=== PATIENT | female | born 1985 | race Caucasian/White ===

== ENCOUNTER 2016-07-17 09:00 | Outpatient (CLI) | payer BC | END 2016-07-17 09:01 | disposition home or self-care (01) | DX: Z20.2 Contact with and (suspected) exposure to infections with a predominantly sexual mode of transmission (principal); Z11.3 Encounter for screening for infections with a predominantly sexual mode of transmission ==

== ENCOUNTER 2016-07-28 14:09 | Outpatient (CLI) | payer BC | END 2016-07-28 14:10 | disposition home or self-care (01) | DX: M54.5 Low back pain (principal); M40.204 Unspecified kyphosis, thoracic region ==

== ENCOUNTER 2016-11-04 10:56 | Inpatient (IN) | payer BC ==
[2016-11-04] MEDS ORDERED: SODIUM CHLORIDE 0.9% 1,000 ML IV ONE ×2 (11:17)
--- NOTE | 2016-11-04 11:33 | ED Physician Documentation ---
History of Present Illness - Stated complaint Stated Complaint: BLOOD IN STOOL - Chief complaint Chief Complaint: Abd Pain - Additonal information Additional information: hx from pt 31 female LMP 2 weeks ago but thinks she might be Pshx appy hx diverticulosis dx by colonoscopy 5 yr ago also hx c diff nausea and fatigue for a week LLQ pain since last night numerous large grossly bloody BMs today no travel no bad food no sick contacts feels faint Review of Systems Constitutional: reports: Fatigue. denies: Fever, Chills Throat: denies: Sore throat Cardiac: denies: Chest pain / pressure Respiratory: denies: Dyspnea GI: reports: Abdominal Pain, Nausea, Diarrhea, Bloody / black stool : denies: Now EGA (do not know) Neurologic: reports: Generalized weakness Endocrine: denies: Easy bruising / bleeding Immunocompromised: denies: Immunocompromised PD PAST MEDICAL HISTORY - Past Medical History Cardiovascular: None Respiratory: None Neuro: None Endocrine/Autoimmune: None GI: Other : Kidney stones Musculoskeletal: Fibromyalgia, Chronic back pain - Past Surgical History Past Surgical History: Yes General: Appendectomy HEENT: Tonsil/Adenoidectomy - Present Medications Home Medications: Ambulatory Orders Medication Instructions Recorded Confirmed Control 11/07/12 04/17/15 diazePAM [Valium] 5 - 10 mg PO TID PRN 05/10/16 11/04/16 oxyCODONE/ACET 5/325 [Percocet 5 2 each PO Q4-6H 05/10/16 11/04/16 mg/325 mg] traMADol [Ultram] 50 mg PO Q4-6H 05/10/16 11/04/16 Zolpidem [Ambien] 1 tab PO DAILY 11/04/16 11/04/16 tiZANidine [Zanaflex] 1 tab PO TID 11/04/16 11/04/16 - Allergies Allergies/Adverse Reactions: Allergies Allergy/AdvReac Type Severity Reaction Status Date / Time sulfamethoxazole Allergy Edema Verified 11/04/16 11:04 [From Bactrim] trimethoprim [From Bactrim] Allergy Edema Verified 11/04/16 11:04 - Social History Does the pt smoke?: No Smoking Status: Never smoker Does the pt drink ETOH?: No Does the pt have substance abuse?: No - Immunizations Immunizations are current?: Yes - POLST Patient has POLST: No PD ED PE NORMAL - Vitals Vital signs reviewed: Yes (tachy) - General General: Alert and oriented X 3, Other (pale anxious) - Cardiac Cardiac: RRR - Respiratory Respiratory: No respiratory distress, Clear bilaterally - Abdomen Abdomen: Soft, Other (TTP LLQ no guarding) - Rectal Rectal: Other (grossly bloody stool in hat) - Derm Derm: Other (pale) - Neuro Neuro: Alert and oriented X 3 Results - Vitals Vitals: Vital Signs - 24 hr 11/04/16 11/04/16 11/04/16 11:01 13:21 14:04 Temperature 36.6 C Heart Rate 125 H 106 H 102 H Respiratory 18 20 18 Rate Blood Pressure 131/84 H 150/76 H 134/62 H O2 Saturation 99 99 100 Oxygen O2 Source Room air - Labs Labs: Laboratory Tests 11/04/16 11/04/16 11/04/16 11:26 11:26 11:26 WBC 10.8 RBC 4.37 Hgb 12.9 Hct 36.7 L MCV 83.9 MCH 29.5 MCHC 35.1 RDW 12.1 Plt Count 231 MPV 7.6 L Neut # 8.0 H Lymph # 2.1 Carbon # 0.5 Eos # 0.3 Baso # 0.1 Absolute Nucleated RBC 0.00 Nucleated RBCs 0.0 ESR PT 10.6 INR 0.9 APTT 28.4 Sodium 138 Potassium 3.7 Chloride 103 Carbon Dioxide 26 Anion Gap 9.0 BUN 11 Creatinine 0.7 Estimated GFR (MDRD) 97 Glucose 105 H Calcium 9.8 Magnesium Total Bilirubin 0.6 AST 18 ALT 20 Alkaline Phosphatase 38 L C-Reactive Protein Total Protein 7.3 Albumin 4.4 Globulin 2.9 Albumin/Globulin Ratio 1.5 Lipase 33 Serum HCG, Qual H. pylori IgG Antibody Blood Type Antibody Screen 11/04/16 11/04/16 11/04/16 11:26 11:26 11:26 WBC RBC Hgb Hct MCV MCH MCHC RDW Plt Count MPV Neut # Lymph # Carbon # Eos # Baso # Absolute Nucleated RBC Nucleated RBCs ESR 15 PT INR APTT Sodium Potassium Chloride Carbon Dioxide Anion Gap BUN Creatinine Estimated GFR (MDRD) Glucose Calcium Magnesium 2.1 Total Bilirubin AST ALT Alkaline Phosphatase C-Reactive Protein 1.6 H Total Protein Albumin Globulin Albumin/Globulin Ratio Lipase Serum HCG, Qual NEGATIVE H. pylori IgG Antibody Blood Type Antibody Screen 11/04/16 11/04/16 11/04/16 11:26 11:56 15:17 WBC RBC Hgb 12.1 Hct MCV MCH MCHC RDW Plt Count MPV Neut # Lymph # Carbon # Eos # Baso # Absolute Nucleated RBC Nucleated RBCs ESR PT INR APTT Sodium Potassium Chloride Carbon Dioxide Anion Gap BUN Creatinine Estimated GFR (MDRD) Glucose Calcium Magnesium Total Bilirubin AST ALT Alkaline Phosphatase C-Reactive Protein Total Protein Albumin Globulin Albumin/Globulin Ratio Lipase Serum HCG, Qual H. pylori IgG Antibody Negative Blood Type AB POSITIVE Antibody Screen NEGATIVE - Rads (name of study) CT abd pelvis Radiology: See rad report (long section descending to sigmoid colon wall thickening c/w colitis could be infectious inflammatory or ischemic among other ddx) PD MEDICAL DECISION MAKING - ED course ED course: GAI bleed colitis hospitalist to bedside and feels more like inflammatory and req no antibiotics yet will admit Departure - Departure Disposition: 01 Home, Self Care Clinical Impression: Colitis GI bleed Qualifiers: GI bleed type/associated pathology: unspecified gastrointestinal hemorrhage type Qualified Code(s): K92.2 - Gastrointestinal hemorrhage, unspecified Condition: Fair
[2016-11-04] MEDS ORDERED: ONDANSETRON 4 MG/2 ML VIAL ONE ×2 (11:34→13:57)
[2016-11-04] MEDS ORDERED: ONDANSETRON 4 MG/2 ML VIAL IVP STA ×2 (11:34→13:56)
[2016-11-04] MEDS ORDERED: HYDROmorphone 1 MG/ML SYRINGE IVP STA ×4 (11:34→15:38)
[2016-11-04] MEDS ORDERED: HYDROmorphone 1 MG/ML SYRINGE ONE ×4 (11:34→16:09)
[2016-11-04 11:37] LABS: BASOPHILS # (AUTO) 0.1 10^3/uL (0.0-0.1); BASOPHILS % (AUTO) 0.6 %; EOSINOPHILS # (AUTO) 0.3 10^3/uL (0.0-0.7); EOSINOPHILS % (AUTO) 2.5 %; HCT - HEMATOCRIT 36.7 % (37.0-47.0); HGB - HEMOGLOBIN 12.9 g/dL (12.0-16.0); LYMPHOCYTES # (AUTO) 2.1 10^3/uL (1.5-3.5); MEAN CORPUSCULAR HEMOGLOBIN 29.5 pg (27.0-31.0); MEAN CORPUSCULAR HGB CONC 35.1 g/dL (32.0-36.0); MEAN CORPUSCULAR VOLUME 83.9 fL (81.0-99.0); MEAN PLATELET VOLUME 7.6 fL (7.9-10.8); MONOCYTES # (AUTO) 0.5 10^3/uL (0.0-1.0); MONOCYTES % (AUTO) 4.2 %; NEUTROPHILS % (AUTO) 73.7 %; RED BLOOD COUNT 4.37 10^6/uL (4.20-5.40); RED CELL DISTRIBUTION WIDTH 12.1 % (12.0-15.0); UNCORRECTED WHITE BLOOD COUNT 10.8 x10^3/uL; WHITE BLOOD COUNT 10.8 x10^3/uL (4.8-10.8)
[2016-11-04 11:45] LABS: INR 0.9 (0.8-1.2); PT - PROTHROMBIN TIME 10.6 secs (9.9-12.6)
[2016-11-04 11:52] LABS: PARTIAL THROMBOPLASTIN TIME 28.4 secs (24.9-33.3)
[2016-11-04 11:57] LABS: ALBUMIN/GLOBULIN RATIO 1.5 (1.0-2.2); BILIRUBIN,TOTAL 0.6 mg/dL (0.2-1.0); CALCIUM 9.8 mg/dL (8.5-10.3); CREATININE 0.7 mg/dL (0.4-1.0); POTASSIUM 3.7 mmol/L (3.5-5.0); TOTAL PROTEIN 7.3 g/dL (6.7-8.2)
[2016-11-04] MEDS ORDERED: PROMETHAZINE 25 MG/1 ML VIAL IM PRN (14:05)
[2016-11-04] MEDS ORDERED: SODIUM CHLORIDE FLUSH 0.9% 10 ML SYRINGE IVP PRN (14:05)
[2016-11-04 14:50] LABS: MAGNESIUM 2.1 mg/dL (1.7-2.8)
[2016-11-04] MEDS ORDERED: IOPAMIDOL-300 100 ML VIAL IVP ONE (14:56)
[2016-11-04 14:58] LABS: H. PYLORI IGG ANTIBODY Negative (Negative); HPYLORI NEG QC Negative (Negative); HPYLORI POS QC POSITIVE (Positive)
[2016-11-04] MEDS ORDERED: traMADol 50 MG TABLET PO SCH (15:00)
--- NOTE | 2016-11-04 15:26 | CT Report ---
EXAM: CT ABDOMEN AND PELVIS EXAM DATE: 11/04/2016 02:57 PM. CLINICAL HISTORY: Left lower quadrant pain, gastrointestinal bleed. COMPARISONS: Abdomen and pelvis CT 05/11/2016. TECHNIQUE: Routine helical CT imaging was performed through the abdomen and pelvis. IV contrast: 100 cc Isovue-300. Enteric contrast: No. Reconstructions: Coronal and sagittal. In accordance with CT protocol optimization, one or more of the following dose reduction techniques w ere utilized for this exam: automated exposure control, adjustment of mA and/or KV based on patient s ize, or use of iterative reconstructive technique. FINDINGS: Lung Bases: Unremarkable. Liver: Normal. No masses. Gallbladder/Bile Ducts: Unremarkable. Spleen: Normal. Pancreas: Normal. Adrenal Glands: Normal. Kidneys: Symmetric renal enhancement without hydronephrosis. Linear calcification redemonstrated with in the right renal parenchyma with adjacent cystic density. Bowel: The stomach is unremarkable. Small bowel is decompressed. Suture material is present at the ce jose angel tip suggesting prior appendectomy. Mild colonic diverticular disease. There is long segment wall thickening of the colon involving the descending colon extending to the sigmoid although this does no t appear centered around a particular diverticulum. Slight adjacent fat stranding. No pneumoperitoneu m or abscess. Trace free fluid within the deep pelvis. Pelvic Organs: Bladder is unremarkable. Mild lobulation of the uterus consistent with leiomyomata. Vasculature: No aneurysms or other significant abnormality. Bones: No significant abnormality. Other: None. IMPRESSION: 1. Long segment wall thickening involving the descending colon extending into the sigmoid. Appearance is consistent with a colitis. Differential diagnosis includes infectious colitis, inflammatory bowel disease or ischemic colitis. No abscess or pneumoperitoneum. 2. Underlying colonic diverticular disease. 3. Leiomyomatous uterus. [facility] Referring Provider Line: [phone] SITE ID: [id number]
[2016-11-04] MEDS ORDERED: PANTOPRAZOLE 40 MG VIAL IVP SCH (16:00)
[2016-11-04] MEDS ORDERED: diphenhydrAMINE INJ 50 MG/ML VIAL IVP ONE ×2 (16:07→17:00)
[2016-11-04] MEDS ORDERED: CYANOCOBALAMIN 1,000 MCG/ML VIAL IM ONE (17:00)
[2016-11-04] MEDS ORDERED: methylPREDNISolone SUCCINATE 125 MG/2 ML VIAL IVP SCH (17:00)
[2016-11-04] MEDS: SACCHAROMYCES BOULARDII 250 MG CAPSULE PO SCH (17:12)
[2016-11-04] MEDS: SODIUM CHLORIDE 0.9% 1,000 ML IV SCH (17:12)
[2016-11-04] MEDS: CHOLECALCIFEROL 5,000 UNIT CAPSULE PO SCH ×2 (17:13→22:25)
[2016-11-04] MEDS: oxyCODONE 5 MG TABLET PO PRN ×2 (17:13→21:23)
[2016-11-04] MEDS: PANTOPRAZOLE 40 MG VIAL IVP SCH (17:13)
[2016-11-04] MEDS: tiZANidine 4 MG TABLET PO PRN (17:13)
[2016-11-04 17:30] LABS: IRON 14 ug/dL (28-170); TOTAL IRON BINDING CAPACITY 363 ug/dL (250-450); TRANSFERRIN 259 mg/dL (192-382)
[2016-11-04] MEDS: GABAPENTIN 300 MG CAPSULE PO SCH ×2 (17:41→22:25)
[2016-11-04] MEDS ORDERED: NICOTINE 21 MG PATCH TOP ONE (17:50)
[2016-11-04] MEDS ORDERED: ALPRAZolam 0.25 MG TABLET PO ONE (17:55)
[2016-11-04 18:28] LABS: THYROID STIMULATING HORMONE 0.6 uIU/mL (0.34-5.60)
[2016-11-04] MEDS ORDERED: IRON SUCROSE 300 MG in SODIUM CHLORIDE 0.9% 250 ML IV ONE (18:58)
[2016-11-04] MEDS: traMADol 50 MG TABLET PO PRN ×2 (19:36→23:45)
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
[2016-11-04 20:32] LABS: BASOPHILS % (AUTO) 0.4 %; EOSINOPHILS % (AUTO) 0.3 %; HCT - HEMATOCRIT 32.9 % (37.0-47.0); HGB - HEMOGLOBIN 11.1 g/dL (12.0-16.0); LYMPHOCYTES % (AUTO) 7.6 %; MEAN CORPUSCULAR HEMOGLOBIN 28.5 pg (27.0-31.0); MEAN CORPUSCULAR HGB CONC 33.7 g/dL (32.0-36.0); MEAN CORPUSCULAR VOLUME 84.8 fL (81.0-99.0); MEAN PLATELET VOLUME 8.5 fL (7.9-10.8); NEUTROPHILS % (AUTO) 90.7 %; RED BLOOD COUNT 3.89 10^6/uL (4.20-5.40); RED CELL DISTRIBUTION WIDTH 12.2 % (12.0-15.0); UNCORRECTED WHITE BLOOD COUNT 11.7 x10^3/uL; WHITE BLOOD COUNT 11.7 x10^3/uL (4.8-10.8)
[2016-11-04] MEDS ORDERED: IRON DEXTRAN 1,000 MG in SODIUM CHLORIDE 0.9% 500 ML IV ONE (20:39)
[2016-11-04] MEDS ORDERED: GABAPENTIN 300 MG CAPSULE PO SCH (21:00)
[2016-11-04] MEDS ORDERED: IRON DEXTRAN 25 MG in SODIUM CHLORIDE 0.9% 50 ML IV SCH (21:30)
[2016-11-04 21:31] LABS: BAND NEUTROPHILS % (MANUAL) 2 %; BASOPHILS % (MANUAL) 1 %; EOSINOPHILS % (MANUAL) 1 %; LYMPHOCYTES % (MANUAL) 5 %; NEUTROPHILS % (MANUAL) 88 %; TOTAL CELLS COUNTED 100
[2016-11-04 21:32] LABS: PLATELET ESTIMATE, MANUAL NORMAL (130-450,000) (NORMAL); PLATELET MORPHOLOGY RARE GIANT PLATELETS (NORMAL)
[2016-11-04 21:33] LABS: NP AUTO DIFFERENTIAL? YES; NP MAN DIFFERENTIAL? NO
[2016-11-04] MEDS: ALPRAZolam 0.25 MG TABLET PO SCH (22:25)
[2016-11-04] MEDS: SODIUM CHLORIDE FLUSH 0.9% 10 ML SYRINGE IVP SCH (22:25)
[2016-11-05] MEDS ORDERED: ZOLPIDEM 5 MG TABLET PO PRN ×2 (00:29→21:00)
[2016-11-05] MEDS: oxyCODONE 5 MG TABLET PO PRN ×4 (02:34→16:37)
[2016-11-05] MEDS: SODIUM CHLORIDE 0.9% 1,000 ML IV SCH ×3 (02:40→21:41)
[2016-11-05] MEDS: traMADol 50 MG TABLET PO PRN ×3 (05:35→21:35)
[2016-11-05] MEDS: GABAPENTIN 300 MG CAPSULE PO SCH ×3 (05:35→21:41)
[2016-11-05] MEDS: tiZANidine 4 MG TABLET PO PRN ×2 (05:35→16:01)
[2016-11-05] MEDS: SODIUM CHLORIDE FLUSH 0.9% 10 ML SYRINGE IVP SCH ×3 (05:37→21:36)
[2016-11-05 05:49] LABS: BASOPHILS # (AUTO) 0.1 10^3/uL (0.0-0.1); BASOPHILS % (AUTO) 0.7 %; EOSINOPHILS % (AUTO) 0.1 %; HCT - HEMATOCRIT 33.4 % (37.0-47.0); HGB - HEMOGLOBIN 11.5 g/dL (12.0-16.0); LYMPHOCYTES # (AUTO) 1.1 10^3/uL (1.5-3.5); MEAN CORPUSCULAR HEMOGLOBIN 29.3 pg (27.0-31.0); MEAN CORPUSCULAR HGB CONC 34.4 g/dL (32.0-36.0); MEAN CORPUSCULAR VOLUME 85.1 fL (81.0-99.0); MEAN PLATELET VOLUME 8.2 fL (7.9-10.8); MONOCYTES # (AUTO) 0.1 10^3/uL (0.0-1.0); MONOCYTES % (AUTO) 1.2 %; NEUTROPHILS # (AUTO) 7.4 10^3/uL (1.5-6.6); RED BLOOD COUNT 3.92 10^6/uL (4.20-5.40); RED CELL DISTRIBUTION WIDTH 12.4 % (12.0-15.0); UNCORRECTED WHITE BLOOD COUNT 8.7 x10^3/uL; WHITE BLOOD COUNT 8.7 x10^3/uL (4.8-10.8)
[2016-11-05] MEDS: ONDANSETRON ODT 4 MG TABLET TL PRN ×2 (05:55→21:41)
[2016-11-05] MEDS: PANTOPRAZOLE 40 MG VIAL IVP SCH (06:01)
[2016-11-05 06:05] LABS: CHOL/HDL RATIO 4.5 (<4.4); CHOLESTEROL 254 mg/dL; HDL CHOLESTEROL 56 mg/dL; LDL/HDL RATIO 2.9 (<4.4); TRIGLYCERIDES 181 mg/dL; VLDL CHOLESTEROL 36 mg/dL
[2016-11-05] MEDS ORDERED: IRON SUCROSE 300 MG in SODIUM CHLORIDE 0.9% 250 ML IV ONE (08:00)
[2016-11-05] MEDS ORDERED: predniSONE 10 MG TABLET PO SCH (08:00)
--- NOTE | 2016-11-05 08:37 | Discharge Plan ---
Discharge Plan Disposition: Home, Self Care Condition: Stable Prescriptions: Dicyclomine [Bentyl] 10 mg PO QID PRN #30 capsule PRN Reason: Abdominal Pain Ciprofloxacin [Cipro] 500 mg PO BID #18 tablet metroNIDAZOLE [Flagyl] 500 mg PO Q8H #27 tablet Prednisone 40 mg PO DAILY #60 tab.[id number].pk Diet: Regular Shower Restrictions: No Driving Restrictions: No Weight Bearing: Full Weight Additional Instructions or Follow Up instructions: You came to the hospital with bloody stool at home (red blood per rectum) Your red blood count (hemoglobin and hematocrit) remained stable, your clotting time and platelet count was normal You were hemodynamically stable (no blood pressure issues) and did not require a red blood cell transfusion Markers of inflammation ESR (erythrocyte sedimentation rate ) CRP (C-reactive protein) was mildly elevated C-Dif sample ordered and stool pathogens ordered, but you had no further stool while here to send for culture (so it is unlikely Cdif, as that normally would cause frequent loose stool, fever, elevated white count) A CT of the abdomen and pelvis showed 1) mild colonic diverticulosis. >>There was some thickening of the colon involving the descending colon (left side) extending to the sigmoid (not associated with a diverticula) with some mild "fat stranding" (inflammation) most consistent with a colitis/ could be diverticulits but not clear. (inflammation of the colon can be infectious, inflammatory (like crohns or ulcerative colitis or "ischemic coliitis (ischemic colitis would be unlikely at age 31) [address]; leiomyomatous uterus. You were started on prednisone (antiinflammatory) and ciprofloxacin/flagyl (9 more days). You will need a colonoscopy, tissue biopsy (once the inflammation is reduced. Take 40 mg x 2 more days, then reduce to 30 mg / day . (if no worse pain, and no recurrent bleeding, PcP will give further taper instructions. Take an over the counter probiotic (like florastor) 2x / day while on the antibiotics to avoid overgrowth When you follow up with Dr. Dumont Wednesday, get a referral for consultation for colonoscopy with Dr. Chris Esposito OR with a sales and merchandising representative for colonoscopy and further management once tissue biopsy results If your are tolerating regular food, he may start tapering the steroid further If you have worsening diarrhea, or fever contact your PCP You also have a prescription for dicyclomine (bentyl) a smooth muscle (gut) antispasmodic Dont smoke . Tobacco/smoking can aggravate colitis No Smoking: If you smoke, Please STOP! Call for help. Follow-up with: Casey Dumont DO [Primary Care Provider] -
[2016-11-05] MEDS: CHOLECALCIFEROL 5,000 UNIT CAPSULE PO SCH ×2 (08:38→21:35)
[2016-11-05] MEDS: MULTIVITAMIN W/MINERALS TABLET PO SCH (08:38)
[2016-11-05] MEDS: SACCHAROMYCES BOULARDII 250 MG CAPSULE PO SCH ×2 (08:38→16:37)
[2016-11-05] MEDS: ALPRAZolam 0.25 MG TABLET PO SCH ×2 (08:39→21:35)
[2016-11-05] MEDS ORDERED: NICOTINE 21 MG PATCH TOP SCH (09:00)
[2016-11-05] MEDS ORDERED: predniSONE 20 MG TABLET PO SCH (10:00)
[2016-11-05] MEDS: DICYCLOMINE 10 MG CAPSULE PO SCH ×3 (12:02→21:35)
--- NOTE | 2016-11-05 12:16 | PROVIDER PROGRESS NOTE ---
Subjective - Prog Note Date Prog Note Date: 11/05/16 Prog Note Time: 12:00 (late entry,seen ~ 730am and ~1130) - Subjective Pt reports feeling: No change (has not had any BM's overnight Denies ever having loose stools or diarrhea after any particular oral intake, no problems with dairy or wheat products after eating / no food intolerance many years ago when had hematemeiss,and hematochezia was told it was diverticulitis denies recent UTI no family hx of IBD, no weight loss , has actually been gaining weight denies heavy menses reports as "light" no hand arthritis expresses frustrateion about the different dietary advisements (no gluten or dairy 11/05, per surgeon advance to regular and hospitalist rec to advance from clears to fulls first Is concerned that her nicoderm patch is wearing off b/c it has been 24 hrs and inquireing doesnt the next need to be placed. Inquired about leaving hospital tonight, just wants to go home and eat regular food) Current Medications - Current Medications Current Medications: Active Medications Generic Name Dose Route Start Last Admin Trade Name Ernesto PRN Reason Stop Dose Admin Alprazolam 0.5 mg 11/04/16 23:00 11/05/16 08:39 Xanax PO 0.5 mg BID MARISOL Administration Cholecalciferol 5,000 unit 11/04/16 17:00 11/05/16 08:38 Vitamin D3 PO 5,000 unit BID MARISOL Administration Ciprofloxacin 500 mg 11/05/16 14:00 11/05/16 14:20 Cipro PO 11/15/16 13:59 500 mg BID MARISOL Administration Dicyclomine HCl 10 mg 11/05/16 13:00 11/05/16 12:02 Bentyl PO 10 mg QID MARISOL Administration Gabapentin 300 mg 11/04/16 18:00 11/05/16 13:17 Neurontin PO 300 mg TID MARISOL Administration Sodium Chloride 1,000 mls @ 100 mls/hr 11/04/16 15:00 11/05/16 12:13 Normal Saline 0.9% IV 100 mls/hr .Q10H MARISOL Administration Metronidazole 500 mg 11/05/16 13:00 11/05/16 13:17 Flagyl PO 11/15/16 12:59 500 mg Q8H MARISOL Administration Multivitamins/Minerals 1 tab 11/05/16 08:00 11/05/16 08:38 Theragran M PO 1 tab DAILYWM MARISOL Administration Ondansetron HCl 4 mg 11/04/16 14:05 11/05/16 05:55 Zofran Odt TL 4 mg Q6HR PRN Administration Nausea / Vomiting Oxycodone HCl 5 mg 11/04/16 14:05 11/05/16 07:42 Roxicodone PO 5 mg Q4HR PRN Administration Pain 5 to 7 Oxycodone HCl 10 mg 11/05/16 11:37 11/05/16 12:02 Roxicodone PO 10 mg Q4HR PRN Administration PAIN Promethazine HCl 25 mg 11/04/16 14:05 11/04/16 18:13 Phenergan Inj IM 25 mg Q6HR PRN Administration Nausea / Vomiting Saccharomyces Boulardii 500 mg 11/04/16 17:00 11/05/16 08:38 Florastor PO 500 mg BIDWM MARISOL Administration Sodium Chloride 10 ml 11/04/16 14:05 Normal Saline Flush 0.9% IVP PRN PRN NEEDED PER PROVIDER ORDERS Sodium Chloride 10 ml 11/04/16 22:00 11/05/16 13:17 Normal Saline Flush 0.9% IVP Not Given Q8HR MARISOL Tizanidine HCl 4 mg 11/04/16 15:00 11/05/16 05:35 Zanaflex PO 4 mg TID PRN Administration SPASMS Tramadol HCl 100 mg 11/04/16 16:10 11/05/16 11:03 Ultram PO 100 mg Q4HR PRN Administration PAIN Zolpidem Tartrate 5 mg 11/05/16 00:29 11/05/16 00:44 Ambien PO 5 mg QPM PRN Administration Insomnia diazePAM [Valium] 5 mg PO TID PRN 05/10/16 oxyCODONE/ACET 5/325 [Percocet 5 mg/325 mg] 1 - 2 tab PO Q6H PRN 05/10/16 traMADol [Ultram] 50 - 100 mg PO QID PRN 05/10/16 Zolpidem [Ambien] 10 mg PO QPM 11/04/16 tiZANidine [Zanaflex] 4 mg PO TID PRN 11/04/16 Norethindrone-Ethinyl Estrad [Dasetta 1-35-28 Tablet] 1 tab PO DAILY 11/05/16 Ondansetron [Ondansetron Odt] 4 mg PO TID PRN 11/05/16 traZODone [Desyrel] 50 mg PO QPM 11/05/16 Objective - Vital Signs/Intake & Output Reviewed Vital Signs: Yes Vital Signs: Vital Signs x48h Temp Pulse Resp BP Pulse Ox 11/05/16 08:00 36.7 C 61 16 112/70 100 11/05/16 05:34 73 115/70 Intake & Output: Intake & Output 11/02/16 11/03/16 11/04/16 11/05/16 23:59 23:59 23:59 23:59 Intake Total 1063 1160 Balance 1063 1160 - Objective General Appearance: positive: No acute distress (lying in bed quietly, in later in shift wearing heat pad over her abdomen) Eyes Bilateral: positive: PERRL Respiratory: positive: No respiratory distress, Breath sounds nml Cardiovascular: positive: Regular rate & rhythm, No murmur Abdomen: positive: Other (+ bowel sounds, no guarding, very localized tenderness Left lower quadrant (only mild voluntary guarding when deeply palpating there, no mass appreciated no suprapubic tendernss, Hungry ,) Skin: positive: Warm, Dry Extremities: positive: No pedal edema - Lab Results Fish Bones: 11/06/16 05:50 11/04/16 11:26 Other Labs: Lab Results x24hrs 11/05/16 11/05/16 11/05/16 Range/Units 05:40 05:40 05:40 WBC 8.7 (4.8-10.8) x10^3/uL RBC 3.92 L (4.20-5.40) 10^6/uL Hgb 11.5 L (12.0-16.0) g/dL Hct 33.4 L (37.0-47.0) % MCV 85.1 (81.0-99.0) fL MCH 29.3 (27.0-31.0) pg MCHC 34.4 (32.0-36.0) g/dL RDW 12.4 (12.0-15.0) % Plt Count 241 (130-450) 10^3/uL MPV 8.2 (7.9-10.8) fL Neut # 7.4 H Lymph # 1.1 L Wolfe # 0.1 Eos # 0.0 Baso # 0.1 Absolute Nucleated RBC 0.00 Total Counted Band Neuts % (Manual) (0 - 10) % Reactive Lymphs % (Man) % Neutrophils # (Manual) (1.5-6.6) 10^3/uL Lymphocytes # (Manual) (1.5-3.5) 10^3/uL Eosinophils # (Manual) (0-0.7) 10^3/uL Basophils # (Manual) (0-0.1) 10^3/uL Nucleated RBCs 0.0 Differential Comment Platelet Estimate (NORMAL) Platelet Morphology (NORMAL) RBC Morph Micro Appear (NORMAL) Fibrinogen (220-496) mg/dL Iron (28-170) ug/dL TIBC (250-450) ug/dL % Saturation (20-50) % Transferrin (192-382) mg/dL Ferritin (11.0-306.8) ng/mL C-Reactive Protein 10.0 H (0-1.0) mg/dL Triglycerides 181 H ( - 149) mg/dL Cholesterol 254 H ( - 199) mg/dL LDL Cholesterol, Calc 162 H ( - 129) mg/dL VLDL Cholesterol 36 mg/dL HDL Cholesterol 56 L (60 - ) mg/dL LDL/HDL Ratio 2.9 (<4.4) Cholesterol/HDL Ratio 4.5 (<4.4) Vitamin B12 (180-914) pg/mL TSH (0.34-5.60) uIU/mL Thyroxine (T4) (6.09-12.23) ug/dL Free T3 pg/mL (2.5-3.9) pg/mL 11/04/16 11/04/16 11/04/16 Range/Units 20:10 20:10 16:53 WBC 11.7 H (4.8-10.8) x10^3/uL RBC 3.89 L (4.20-5.40) 10^6/uL Hgb 11.1 L (12.0-16.0) g/dL Hct 32.9 L (37.0-47.0) % MCV 84.8 (81.0-99.0) fL MCH 28.5 (27.0-31.0) pg MCHC 33.7 (32.0-36.0) g/dL RDW 12.2 (12.0-15.0) % Plt Count 228 (130-450) 10^3/uL MPV 8.5 (7.9-10.8) fL Neut # Not Reportable Lymph # Not Reportable Wolfe # Not Reportable Eos # Not Reportable Baso # Not Reportable Absolute Nucleated RBC Not Reportable Total Counted 100 Band Neuts % (Manual) 2 (0 - 10) % Reactive Lymphs % (Man) 3 % Neutrophils # (Manual) 10.5 H (1.5-6.6) 10^3/uL Lymphocytes # (Manual) 0.9 L (1.5-3.5) 10^3/uL Eosinophils # (Manual) 0.1 (0-0.7) 10^3/uL Basophils # (Manual) 0.1 (0-0.1) 10^3/uL Nucleated RBCs Not Reportable Differential Comment MANUAL DIFFERENTIAL Platelet Estimate NORMAL (130-450,000) (NORMAL) Platelet Morphology RARE GIANT PLATELETS (NORMAL) RBC Morph Micro Appear NORMAL APPEARANCE (NORMAL) Fibrinogen 422 (220-496) mg/dL Iron (28-170) ug/dL TIBC (250-450) ug/dL % Saturation (20-50) % Transferrin (192-382) mg/dL Ferritin 104.5 (11.0-306.8) ng/mL C-Reactive Protein (0-1.0) mg/dL Triglycerides ( - 149) mg/dL Cholesterol ( - 199) mg/dL LDL Cholesterol, Calc ( - 129) mg/dL VLDL Cholesterol mg/dL HDL Cholesterol (60 - ) mg/dL LDL/HDL Ratio (<4.4) Cholesterol/HDL Ratio (<4.4) Vitamin B12 (180-914) pg/mL TSH (0.34-5.60) uIU/mL Thyroxine (T4) (6.09-12.23) ug/dL Free T3 pg/mL (2.5-3.9) pg/mL 11/04/16 11/04/16 11/04/16 Range/Units 16:53 16:53 16:53 WBC (4.8-10.8) x10^3/uL RBC (4.20-5.40) 10^6/uL Hgb (12.0-16.0) g/dL Hct (37.0-47.0) % MCV (81.0-99.0) fL MCH (27.0-31.0) pg MCHC (32.0-36.0) g/dL RDW (12.0-15.0) % Plt Count (130-450) 10^3/uL MPV (7.9-10.8) fL Neut # Lymph # Wolfe # Eos # Baso # Absolute Nucleated RBC Total Counted Band Neuts % (Manual) (0 - 10) % Reactive Lymphs % (Man) % Neutrophils # (Manual) (1.5-6.6) 10^3/uL Lymphocytes # (Manual) (1.5-3.5) 10^3/uL Eosinophils # (Manual) (0-0.7) 10^3/uL Basophils # (Manual) (0-0.1) 10^3/uL Nucleated RBCs Differential Comment Platelet Estimate (NORMAL) Platelet Morphology (NORMAL) RBC Morph Micro Appear (NORMAL) Fibrinogen (220-496) mg/dL Iron 14 L (28-170) ug/dL TIBC 363 (250-450) ug/dL % Saturation 4 L (20-50) % Transferrin 259 (192-382) mg/dL Ferritin (11.0-306.8) ng/mL C-Reactive Protein (0-1.0) mg/dL Triglycerides ( - 149) mg/dL Cholesterol ( - 199) mg/dL LDL Cholesterol, Calc ( - 129) mg/dL VLDL Cholesterol mg/dL HDL Cholesterol (60 - ) mg/dL LDL/HDL Ratio (<4.4) Cholesterol/HDL Ratio (<4.4) Vitamin B12 (180-914) pg/mL TSH (0.34-5.60) uIU/mL Thyroxine (T4) 6.93 (6.09-12.23) ug/dL Free T3 pg/mL 3.76 (2.5-3.9) pg/mL 11/04/16 Range/Units 16:53 WBC (4.8-10.8) x10^3/uL RBC (4.20-5.40) 10^6/uL Hgb (12.0-16.0) g/dL Hct (37.0-47.0) % MCV (81.0-99.0) fL MCH (27.0-31.0) pg MCHC (32.0-36.0) g/dL RDW (12.0-15.0) % Plt Count (130-450) 10^3/uL MPV (7.9-10.8) fL Neut # Lymph # Wolfe # Eos # Baso # Absolute Nucleated RBC Total Counted Band Neuts % (Manual) (0 - 10) % Reactive Lymphs % (Man) % Neutrophils # (Manual) (1.5-6.6) 10^3/uL Lymphocytes # (Manual) (1.5-3.5) 10^3/uL Eosinophils # (Manual) (0-0.7) 10^3/uL Basophils # (Manual) (0-0.1) 10^3/uL Nucleated RBCs Differential Comment Platelet Estimate (NORMAL) Platelet Morphology (NORMAL) RBC Morph Micro Appear (NORMAL) Fibrinogen (220-496) mg/dL Iron (28-170) ug/dL TIBC (250-450) ug/dL % Saturation (20-50) % Transferrin (192-382) mg/dL Ferritin (11.0-306.8) ng/mL C-Reactive Protein (0-1.0) mg/dL Triglycerides ( - 149) mg/dL Cholesterol ( - 199) mg/dL LDL Cholesterol, Calc ( - 129) mg/dL VLDL Cholesterol mg/dL HDL Cholesterol (60 - ) mg/dL LDL/HDL Ratio (<4.4) Cholesterol/HDL Ratio (<4.4) Vitamin B12 295 (180-914) pg/mL TSH 0.60 (0.34-5.60) uIU/mL Thyroxine (T4) (6.09-12.23) ug/dL Free T3 pg/mL (2.5-3.9) pg/mL Assessment/Plan - Problem List (1) Colitis Impression: Definate, although mild stranding suggestive of inflammation (descending colon) on CT no significant leukocytosis on admit, no fever, ESR normal, nominally elevated CRP /17 (but 10.0 today / up from 1.6), no anorexia Highly unlikley ischemic coliits in 31 yo H/H stable since admit, and no further hematochezia since admit. hemodynamically stable will rechek H/H in am ? infectious vs inflammatory coliits/ no family Hx of IBD, Pt denies prior presentation (in EMR to ED) for oral sores were apthous ulcers (denies); S No hx weight loss, Iron studies c/w ARRON (although ferritin spurious/ uninterpretable as acute phase reactant currently Pt denies prior hematochezia (other than when had Cdif) Re Infectious; no stool yet obtained, Hx of Cdif, ; hesitant to start cipro/ flagyl for ? infectious colitis until Cdif ruled out. If no Cdif will start cipro /flagyl (per d/w surgeon, starting cipro / flagyl Added order for fecal pathogens (no stool since admit, argues somewhat against infectious DDx includes hemorrhoids w/ her opiate use/occas constipation per patient, BUT as aobve does have colonic stranding so Highly doubt this is just hemorrhoids. Started steroids in ED, would need higher dose if IBD, started 40 mg / day, (as above her CRP actually increased since admit After Dr Aguilar seesisabella try diet advance to fulls as the colonoscopy will be outpt isabella D/C IV PPI, as very low suspiciian for UGIB as source of the hematochezia Addendum; Dr Aguilar,initially suggested this was diverticulitis and to start cipro / flagyl and to d/c steroids, but in further review and discussion he indicated to continue the Prednisone ; and plan tissue Bx Re: diet advance, discussed w patient that especially with uncertainty if this is diverticulitis vs colitis, will advance diet gradually. If tolerates fulls with no increase pain or bleeding, and no worse inflammatory markers can advance tomorrow (and further advance at home, ideally with food diary, and f/u with Dr. Esposito for colonoscopy (2) GI bleed Impression: Lower GI bleed/ hematochezi (I saw patients cell phone images; bright red blood at bottum of toilet bowl) hemodynamically stable, no further BRPPR overnight ? IBD vs infectious colitis as above will recheck H/H in am unless any sign of continued bleeding and ensure no recurrent bleed w/ diet advance Qualifiers: GI bleed type/associated pathology: unspecified gastrointestinal hemorrhage type Qualified Code(s): K92.2 - Gastrointestinal hemorrhage, unspecified
--- NOTE | 2016-11-05 13:12 | PROVIDER PROGRESS NOTE ---
Assessment/Plan - Problem List (1) GI bleed Qualifiers: GI bleed type/associated pathology: unspecified gastrointestinal hemorrhage type Qualified Code(s): K92.2 - Gastrointestinal hemorrhage, unspecified Assessment/Plan: 31 yo female with history of Diverticuli, C diff, chronic pain, now with hematochezia resolved and Ct findings of inflammation in the descending/ sigmoid colon Recommend serial H&H and if stable then advance diet as tolerated IV hydration Pain control Recommend Cipro & Flagyl & steroids Given hx of C diff, would test stool for recurrence as well as stool cultures for bacteria O&P Patient will need IBD workup and colonoscopy as out patient when decreased inflammation. Will need to follow up in surgical clinic with Colorectal surgery in 2 weeks. - Current Meds Current Meds: Current Medications Generic Name Dose Route Start Last Admin Trade Name Freq PRN Reason Stop Dose Admin Alprazolam 0.5 mg 11/04/16 23:00 11/05/16 08:39 Xanax PO 0.5 mg BID MARISOL Administration Cholecalciferol 5,000 unit 11/04/16 17:00 11/05/16 08:38 Vitamin D3 PO 5,000 unit BID MARISOL Administration Dicyclomine HCl 10 mg 11/05/16 13:00 11/05/16 12:02 Bentyl PO 10 mg QID MARISOL Administration Gabapentin 300 mg 11/04/16 18:00 11/05/16 05:35 Neurontin PO 300 mg TID MARISOL Administration Sodium Chloride 1,000 mls @ 100 mls/hr 11/04/16 15:00 11/05/16 12:13 Normal Saline 0.9% IV 100 mls/hr .Q10H MARISOL Administration Multivitamins/Minerals 1 tab 11/05/16 08:00 11/05/16 08:38 Theragran M PO 1 tab DAILYWM MARISOL Administration Ondansetron HCl 4 mg 11/04/16 14:05 11/05/16 05:55 Zofran Odt TL 4 mg Q6HR PRN Administration Nausea / Vomiting Oxycodone HCl 5 mg 11/04/16 14:05 11/05/16 07:42 Roxicodone PO 5 mg Q4HR PRN Administration Pain 5 to 7 Oxycodone HCl 10 mg 11/05/16 11:37 11/05/16 12:02 Roxicodone PO 10 mg Q4HR PRN Administration PAIN Promethazine HCl 25 mg 11/04/16 14:05 11/04/16 18:13 Phenergan Inj IM 25 mg Q6HR PRN Administration Nausea / Vomiting Saccharomyces Boulardii 500 mg 11/04/16 17:00 11/05/16 08:38 Florastor PO 500 mg BIDWM MARISOL Administration Sodium Chloride 10 ml 11/04/16 22:00 11/05/16 05:37 Normal Saline Flush 0.9% IVP Not Given Q8HR MARISOL Tizanidine HCl 4 mg 11/04/16 15:00 11/05/16 05:35 Zanaflex PO 4 mg TID PRN Administration SPASMS Tramadol HCl 100 mg 11/04/16 16:10 11/05/16 11:03 Ultram PO 100 mg Q4HR PRN Administration PAIN Zolpidem Tartrate 5 mg 11/05/16 00:29 11/05/16 00:44 Ambien PO 5 mg QPM PRN Administration Insomnia - Lab Result Lab results reviewed: Yes Fish Bone Diagrams: 11/05/16 05:40 11/04/16 11:26 - Diagnostic Imaging Results Diagnostic Imaging Results: positive: Read contemporaneously Subjective - Subjective Patient Reports: Feeling Better (CC: Abdominal pain with bright red blood from rectum. HPI: 31 yo female with hx of diverticuli,c diff, Fibromyalgia, back/ cervical pain, kidney stones. presents with 1 day episode of multiple bloody bowel movents, with some Nausea and abdominal pain 10/10 left side crampy/sharp non radiating. History of chronic back pain which is "acting up as well. No vomiting. No fevers. GI workup 5 years ago, which was "negative" for IBD. Denies family history of IBD, Not sure if GI cancers in family. Ethinicity: mixed No travel. No new foods. Called by Medical team to evaluate patient for possible further management. Patient states she is hungry and would like to eat. PD PAST MEDICAL HISTORY - Past Medical History Cardiovascular: None Respiratory: None Neuro: None Endocrine/Autoimmune: None GI: Other : Kidney stones Musculoskeletal: Fibromyalgia, Chronic back pain - Past Surgical History Past Surgical History: Yes General: Appendectomy HEENT: Tonsil/ Adenoidectomy - Present Medications Home Medications: Ambulatory Orders Medication Instructions Recorded Confirmed [id number]/ diazePAM [Valium]5 - 10 mg PO TID PRN1/ oxyCODONE/ACET 5/325 [ Percocet 52 each PO Q4-6H05/10/1605/17/17 mg/325 mg] traMADol [Ultram]50 mg PO Q4-6H05/10/1605/17/17 Zolpidem [Ambien]1 tab PO DAILY11/04/1704/17/17 tiZANidine [Zanaflex]1 tab PO TID11/04/1704/17/17 - Allergies Allergies/ Adverse Reactions: Allergies Allergy/AdvReacTypeSeverityReactionStatusDate / Time sulfamethoxazole Allergy Edema Vuokjxjp09/17/17 11:04 [From Bactrim] trimethoprim [From Bactrim] Allergy QcerwWrclwlna92/17/17 11:04 - Social History Does the pt smoke?: No Smoking Status: Never smoker Does the pt drink ETOH?: No Does the pt have substance abuse?: No - Immunizations Immunizations are current?: Yes - POLST Patient has POLST: No), Back Pain Nursing Reports: Pain Objective Vital Signs: Vital Signs - 24 hr 11/04/16 11/04/16 11/04/16 16:22 19:07 23:40 Temperature 36.6 C 36.4 C L Heart Rate 97 Heart Rate [ 72 66 Brachial] Respiratory 18 18 16 Rate Blood Pressure 143/60 H Blood Pressure 93/57 L 97/61 [Right Brachial artery] O2 Saturation 100 98 98 11/05/16 11/05/16 05:34 08:00 Temperature 36.7 C Heart Rate Heart Rate [ 73 61 Brachial] Respiratory 16 Rate Blood Pressure Blood Pressure 115/70 112/70 [Right Brachial artery] O2 Saturation 100 Oxygen O2 Source Room air I&O (Last 24 Hrs): Intake and Output Totals x24h 11/03/16 11/04/16 11/05/16 23:59 23:59 23:59 Intake Total 1063 1160 Balance 1063 1160 General: Alert, Oriented x3 HEENT: Atraumatic, PERRLA, EOMI Neck: Supple Neuro: Alert Cardiovascular: Regular rate, Normal S1, Normal S2 Respiratory: No respiratory distress, Breath sounds nml Abdomen: Soft (+Bs, soft,Mild tenderness Left sided abdomen. No rebound or guarding. infraumbilical hernia palpated reducible.) Genitourinary: Normal External Rectal: Non-Tender (Good tone. No gross blood noted. No skin tags or fissures), Stool - Heme POS Skin: No rashes (Warm and dry) - Results Results: Laboratory Results WBC 8.7 x10^3/uL (4.8-10.8) 11/05/16 05:40 RBC 3.92 10^6/uL (4.20-5.40) L 11/05/16 05:40 Hgb 11.5 g/dL (12.0-16.0) L 11/05/16 05:40 Hct 33.4 % (37.0-47.0) L 11/05/16 05:40 MCV 85.1 fL (81.0-99.0) 11/05/16 05:40 MCH 29.3 pg (27.0-31.0) 11/05/16 05:40 MCHC 34.4 g/dL (32.0-36.0) 11/05/16 05:40 RDW 12.4 % (12.0-15.0) 11/05/16 05:40 Plt Count 241 10^3/uL (130-450) 11/05/16 05:40 MPV 8.2 fL (7.9-10.8) 11/05/16 05:40 Neut # 7.4 10^3/uL (1.5-6.6) H 11/05/16 05:40 Lymph # 1.1 10^3/uL (1.5-3.5) L 11/05/16 05:40 Collin # 0.1 10^3/uL (0.0-1.0) 11/05/16 05:40 Eos # 0.0 10^3/uL (0.0-0.7) 11/05/16 05:40 Baso # 0.1 10^3/uL (0.0-0.1) 11/05/16 05:40 Absolute Nucleated RBC 0.00 x10^3/uL 11/05/16 05:40 Total Counted 100 11/04/16 20:10 Band Neuts % (Manual) 2 % (0-10) 11/04/16 20:10 Reactive Lymphs % (Man) 3 % 11/04/16 20:10 Neutrophils # (Manual) 10.5 10^3/uL (1.5-6.6) H 11/04/16 20:10 Lymphocytes # (Manual) 0.9 10^3/uL (1.5-3.5) L 11/04/16 20:10 Eosinophils # (Manual) 0.1 10^3/uL (0-0.7) 11/04/16 20:10 Basophils # (Manual) 0.1 10^3/uL (0-0.1) 11/04/16 20:10 Nucleated RBCs 0.0 /100WBC 11/05/16 05:40 Differential Comment MANUAL DIFFERENTIAL 11/04/16 20:10 Platelet Estimate NORMAL (130-450,000) (NORMAL) 11/04/16 20:10 Platelet Morphology RARE GIANT PLATELETS (NORMAL) 11/04/16 20:10 RBC Morph Micro Appear NORMAL APPEARANCE (NORMAL) 11/04/16 20:10 ESR 15 mm/Hr (0-20) 11/04/16 11:26 PT 10.6 secs (9.9-12.6) 11/04/16 11:26 INR 0.9 (0.8-1.2) 11/04/16 11:26 APTT 28.4 secs (24.9-33.3) 11/04/16 11:26 Fibrinogen 422 mg/dL (220-496) 11/04/16 20:10 Sodium 138 mmol/L (135-145) 11/04/16 11:26 Potassium 3.7 mmol/L (3.5-5.0) 11/04/16 11:26 Chloride 103 mmol/L (101-111) 11/04/16 11:26 Carbon Dioxide 26 mmol/L (21-32) 11/04/16 11:26 Anion Gap 9.0 (6-13) 11/04/16 11:26 BUN 11 mg/dL (6-20) 11/04/16 11:26 Creatinine 0.7 mg/dL (0.4-1.0) 11/04/16 11:26 Estimated GFR (MDRD) 97 (>89) 11/04/16 11:26 Glucose 105 mg/dL (70-100) H 11/04/16 11:26 Calcium 9.8 mg/dL (8.5-10.3) 11/04/16 11:26 Magnesium 2.1 mg/dL (1.7-2.8) 11/04/16 11:26 Iron 14 ug/dL (28-170) L 11/04/16 16:53 TIBC 363 ug/dL (250-450) 11/04/16 16:53 % Saturation 4 % (20-50) L 11/04/16 16:53 Transferrin 259 mg/dL (192-382) 11/04/16 16:53 Ferritin 104.5 ng/mL (11.0-306.8) 11/04/16 16:53 Total Bilirubin 0.6 mg/dL (0.2-1.0) 11/04/16 11:26 AST 18 IU/L (10-42) 11/04/16 11:26 ALT 20 IU/L (10-60) 11/04/16 11:26 Alkaline Phosphatase 38 IU/L (42-121) L 11/04/16 11:26 C-Reactive Protein 10.0 mg/dL (0-1.0) H 11/05/16 05:40 Total Protein 7.3 g/dL (6.7-8.2) 11/04/16 11:26 Albumin 4.4 g/dL (3.2-5.5) 11/04/16 11:26 Globulin 2.9 g/dL (2.1-4.2) 11/04/16 11:26 Albumin/Globulin Ratio 1.5 (1.0-2.2) 11/04/16 11:26 Triglycerides 181 mg/dL (-149) H 11/05/16 05:40 Cholesterol 254 mg/dL (-199) H 11/05/16 05:40 LDL Cholesterol, Calc 162 mg/dL (-129) H 11/05/16 05:40 VLDL Cholesterol 36 mg/dL 11/05/16 05:40 HDL Cholesterol 56 mg/dL (60-) L 11/05/16 05:40 LDL/HDL Ratio 2.9 (<4.4) 11/05/16 05:40 Cholesterol/HDL Ratio 4.5 (<4.4) 11/05/16 05:40 Lipase 33 U/L (22-51) 11/04/16 11:26 Vitamin B12 295 pg/mL (180-914) 11/04/16 16:53 TSH 0.60 uIU/mL (0.34-5.60) 11/04/16 16:53 Thyroxine (T4) 6.93 ug/dL (6.09-12.23) 11/04/16 16:53 Free T3 pg/mL 3.76 pg/mL (2.5-3.9) 11/04/16 16:53 Serum HCG, Qual NEGATIVE 11/04/16 11:26 H. pylori IgG Antibody Negative (Negative) 11/04/16 11:26 Blood Type AB POSITIVE 11/04/16 11:56 Antibody Screen NEGATIVE 11/04/16 11:56
[2016-11-05] MEDS: metroNIDAZOLE 250 MG TABLET PO SCH ×2 (13:17→21:35)
[2016-11-05] MEDS: CIPROFLOXACIN 250 MG TABLET PO SCH ×2 (14:20→21:35)
[2016-11-06] MEDS: oxyCODONE 5 MG TABLET PO PRN ×3 (00:23→09:32)
[2016-11-06] MEDS: tiZANidine 4 MG TABLET PO PRN (00:23)
[2016-11-06] MEDS: metroNIDAZOLE 250 MG TABLET PO SCH (05:26)
[2016-11-06] MEDS: GABAPENTIN 300 MG CAPSULE PO SCH (05:26)
[2016-11-06] MEDS: SODIUM CHLORIDE FLUSH 0.9% 10 ML SYRINGE IVP SCH (05:27)
[2016-11-06 06:21] LABS: BASOPHILS % (AUTO) 0.1 %; EOSINOPHILS % (AUTO) 0.3 %; HCT - HEMATOCRIT 29.2 % (37.0-47.0); HGB - HEMOGLOBIN 10.1 g/dL (12.0-16.0); LYMPHOCYTES % (AUTO) 30.8 %; MEAN CORPUSCULAR HEMOGLOBIN 29.9 pg (27.0-31.0); MEAN CORPUSCULAR HGB CONC 34.5 g/dL (32.0-36.0); MEAN CORPUSCULAR VOLUME 86.8 fL (81.0-99.0); MEAN PLATELET VOLUME 8.5 fL (7.9-10.8); MONOCYTES # (AUTO) 0.5 10^3/uL (0.0-1.0); MONOCYTES % (AUTO) 5.4 %; NEUTROPHILS # (AUTO) 6.1 10^3/uL (1.5-6.6); NEUTROPHILS % (AUTO) 63.4 %; RED BLOOD COUNT 3.37 10^6/uL (4.20-5.40); RED CELL DISTRIBUTION WIDTH 12.6 % (12.0-15.0); UNCORRECTED WHITE BLOOD COUNT 9.7 x10^3/uL; WHITE BLOOD COUNT 9.7 x10^3/uL (4.8-10.8)
[2016-11-06] MEDS: traMADol 50 MG TABLET PO PRN (06:32)
[2016-11-06] MEDS: SODIUM CHLORIDE 0.9% 1,000 ML IV SCH (06:33)
--- NOTE | 2016-11-06 07:24 | PROVIDER PROGRESS NOTE ---
Assessment/Plan - Problem List (1) GI bleed Qualifiers: GI bleed type/associated pathology: unspecified gastrointestinal hemorrhage type Qualified Code(s): K92.2 - Gastrointestinal hemorrhage, unspecified Assessment/Plan: 31 yo female with history of Diverticuli, C diff, chronic pain, now with hematochezia resolved and Ct findings of inflammation in the descending/ sigmoid colon Recommend diet advance as tolerated. Medical management as per primary medical team Patient will need IBD workup and colonoscopy as out patient when decreased inflammation. Will need to follow up in surgical clinic with Colorectal surgery ( Dr. Perez) in 2 weeks. - Current Meds Current Meds: Current Medications Generic Name Dose Route Start Last Admin Trade Name Freq PRN Reason Stop Dose Admin Alprazolam 0.5 mg 11/04/16 23:00 11/05/16 21:35 Xanax PO 0.5 mg BID MARISOL Administration Cholecalciferol 5,000 unit 11/04/16 17:00 11/05/16 21:35 Vitamin D3 PO 5,000 unit BID MARISOL Administration Ciprofloxacin 500 mg 11/05/16 14:00 11/05/16 21:35 Cipro PO 11/15/16 13:59 500 mg BID MARISOL Administration Dicyclomine HCl 10 mg 11/05/16 13:00 11/05/16 21:35 Bentyl PO 10 mg QID MARISOL Administration Gabapentin 300 mg 11/04/16 18:00 11/06/16 05:26 Neurontin PO 300 mg TID MARISOL Administration Sodium Chloride 1,000 mls @ 100 mls/hr 11/04/16 15:00 11/06/16 06:33 Normal Saline 0.9% IV 100 mls/hr .Q10H MARISOL Administration Metronidazole 500 mg 11/05/16 13:00 11/06/16 05:26 Flagyl PO 11/15/16 12:59 500 mg Q8H MARISOL Administration Multivitamins/Minerals 1 tab 11/05/16 08:00 11/05/16 08:38 Theragran M PO 1 tab DAILYWM MARISOL Administration Ondansetron HCl 4 mg 11/04/16 14:05 11/05/16 21:41 Zofran Odt TL 4 mg Q6HR PRN Administration Nausea / Vomiting Oxycodone HCl 5 mg 11/04/16 14:05 11/05/16 07:42 Roxicodone PO 5 mg Q4HR PRN Administration Pain 5 to 7 Oxycodone HCl 10 mg 11/05/16 11:37 11/06/16 05:31 Roxicodone PO 10 mg Q4HR PRN Administration PAIN Promethazine HCl 25 mg 11/04/16 14:05 11/04/16 18:13 Phenergan Inj IM 25 mg Q6HR PRN Administration Nausea / Vomiting Saccharomyces Boulardii 500 mg 11/04/16 17:00 11/05/16 16:37 Florastor PO 500 mg BIDWM MARISOL Administration Sodium Chloride 10 ml 11/04/16 14:05 11/06/16 06:33 Normal Saline Flush 0.9% IVP 10 ml PRN PRN Administration NEEDED PER PROVIDER ORDERS Sodium Chloride 10 ml 11/04/16 22:00 11/06/16 05:27 Normal Saline Flush 0.9% IVP Not Given Q8HR MARISOL Tizanidine HCl 4 mg 11/04/16 15:00 11/06/16 00:23 Zanaflex PO 4 mg TID PRN Administration SPASMS Tramadol HCl 100 mg 11/04/16 16:10 11/06/16 06:32 Ultram PO 100 mg Q4HR PRN Administration PAIN Zolpidem Tartrate 5 mg 11/05/16 00:29 11/05/16 00:44 Ambien PO 5 mg QPM PRN Administration Insomnia - Lab Result Fish Bone Diagrams: 11/06/16 05:50 11/04/16 11:26 - Additional Planning Condition/Complexity: Improved Plan Discussed with:: Patient Subjective - Subjective Patient Reports: Feeling Better Nursing Reports: No Complaints Objective Vital Signs: Vital Signs - 24 hr 11/05/16 11/05/16 11/06/16 08:00 16:10 00:30 Temperature 36.7 C 36.2 C L 36.6 C Heart Rate [ 61 63 50 L Brachial] Respiratory 16 18 12 Rate Blood Pressure 112/70 121/66 109/61 [Right Brachial artery] O2 Saturation 100 100 98 11/06/16 02:32 Temperature Heart Rate [ 65 Brachial] Respiratory Rate Blood Pressure [Right Brachial artery] O2 Saturation Oxygen O2 Source Room air I&O (Last 24 Hrs): Intake and Output Totals x24h 11/04/16 11/05/16 11/06/16 23:59 23:59 23:59 Intake Total 1063 4171 939 Balance 1063 4176 939 General: Alert, Oriented x3 HEENT: PERRLA, EOMI Neck: Supple Neuro: Alert Cardiovascular: Regular rate Respiratory: Breath sounds nml Abdomen: Normal bowel sounds (Patien seen at bedside this am. She denies havinfg any BM's or bloody stool. She c/o the current diet she has been on stating she wants fruit and doesnt eat high sugar food or milk products like ice cream. She stated she wants to go home. Denies any n/v/d no F/C), Soft, No tenderness - Results Results: Laboratory Results WBC 9.7 x10^3/uL (4.8-10.8) 11/06/16 05:50 RBC 3.37 10^6/uL (4.20-5.40) L 11/06/16 05:50 Hgb 10.1 g/dL (12.0-16.0) L 11/06/16 05:50 Hct 29.2 % (37.0-47.0) L 11/06/16 05:50 MCV 86.8 fL (81.0-99.0) 11/06/16 05:50 MCH 29.9 pg (27.0-31.0) 11/06/16 05:50 MCHC 34.5 g/dL (32.0-36.0) 11/06/16 05:50 RDW 12.6 % (12.0-15.0) 11/06/16 05:50 Plt Count 252 10^3/uL (130-450) 11/06/16 05:50 MPV 8.5 fL (7.9-10.8) 11/06/16 05:50 Neut # 6.1 10^3/uL (1.5-6.6) 11/06/16 05:50 Lymph # 3.0 10^3/uL (1.5-3.5) 11/06/16 05:50 Sampson # 0.5 10^3/uL (0.0-1.0) 11/06/16 05:50 Eos # 0.0 10^3/uL (0.0-0.7) 11/06/16 05:50 Baso # 0.0 10^3/uL (0.0-0.1) 11/06/16 05:50 Absolute Nucleated RBC 0.00 x10^3/uL 11/06/16 05:50 Total Counted 100 11/04/16 20:10 Band Neuts % (Manual) 2 % (0-10) 11/04/16 20:10 Reactive Lymphs % (Man) 3 % 11/04/16 20:10 Neutrophils # (Manual) 10.5 10^3/uL (1.5-6.6) H 11/04/16 20:10 Lymphocytes # (Manual) 0.9 10^3/uL (1.5-3.5) L 11/04/16 20:10 Eosinophils # (Manual) 0.1 10^3/uL (0-0.7) 11/04/16 20:10 Basophils # (Manual) 0.1 10^3/uL (0-0.1) 11/04/16 20:10 Nucleated RBCs 0.0 /100WBC 11/06/16 05:50 Differential Comment MANUAL DIFFERENTIAL 11/04/16 20:10 Platelet Estimate NORMAL (130-450,000) (NORMAL) 11/04/16 20:10 Platelet Morphology RARE GIANT PLATELETS (NORMAL) 11/04/16 20:10 RBC Morph Micro Appear NORMAL APPEARANCE (NORMAL) 11/04/16 20:10 ESR 29 mm/Hr (0-20) H 11/06/16 05:50 PT 10.6 secs (9.9-12.6) 11/04/16 11:26 INR 0.9 (0.8-1.2) 11/04/16 11:26 APTT 28.4 secs (24.9-33.3) 11/04/16 11:26 Fibrinogen 422 mg/dL (220-496) 11/04/16 20:10 Sodium 138 mmol/L (135-145) 11/04/16 11:26 Potassium 3.7 mmol/L (3.5-5.0) 11/04/16 11:26 Chloride 103 mmol/L (101-111) 11/04/16 11:26 Carbon Dioxide 26 mmol/L (21-32) 11/04/16 11:26 Anion Gap 9.0 (6-13) 11/04/16 11:26 BUN 11 mg/dL (6-20) 11/04/16 11:26 Creatinine 0.7 mg/dL (0.4-1.0) 11/04/16 11:26 Estimated GFR (MDRD) 97 (>89) 11/04/16 11:26 Glucose 105 mg/dL (70-100) H 11/04/16 11:26 Calcium 9.8 mg/dL (8.5-10.3) 11/04/16 11:26 Magnesium 2.1 mg/dL (1.7-2.8) 11/04/16 11:26 Iron 14 ug/dL (28-170) L 11/04/16 16:53 TIBC 363 ug/dL (250-450) 11/04/16 16:53 % Saturation 4 % (20-50) L 11/04/16 16:53 Transferrin 259 mg/dL (192-382) 11/04/16 16:53 Ferritin 104.5 ng/mL (11.0-306.8) 11/04/16 16:53 Total Bilirubin 0.6 mg/dL (0.2-1.0) 11/04/16 11:26 AST 18 IU/L (10-42) 11/04/16 11:26 ALT 20 IU/L (10-60) 11/04/16 11:26 Alkaline Phosphatase 38 IU/L (42-121) L 11/04/16 11:26 C-Reactive Protein 4.7 mg/dL (0-1.0) H 11/06/16 05:50 Total Protein 7.3 g/dL (6.7-8.2) 11/04/16 11:26 Albumin 4.4 g/dL (3.2-5.5) 11/04/16 11:26 Globulin 2.9 g/dL (2.1-4.2) 11/04/16 11:26 Albumin/Globulin Ratio 1.5 (1.0-2.2) 11/04/16 11:26 Triglycerides 181 mg/dL (-149) H 11/05/16 05:40 Cholesterol 254 mg/dL (-199) H 11/05/16 05:40 LDL Cholesterol, Calc 162 mg/dL (-129) H 11/05/16 05:40 VLDL Cholesterol 36 mg/dL 11/05/16 05:40 HDL Cholesterol 56 mg/dL (60-) L 11/05/16 05:40 LDL/HDL Ratio 2.9 (<4.4) 11/05/16 05:40 Cholesterol/HDL Ratio 4.5 (<4.4) 11/05/16 05:40 Lipase 33 U/L (22-51) 11/04/16 11:26 Vitamin B12 295 pg/mL (180-914) 11/04/16 16:53 TSH 0.60 uIU/mL (0.34-5.60) 11/04/16 16:53 Thyroxine (T4) 6.93 ug/dL (6.09-12.23) 11/04/16 16:53 Free T3 pg/mL 3.76 pg/mL (2.5-3.9) 11/04/16 16:53 Serum HCG, Qual NEGATIVE 11/04/16 11:26 H. pylori IgG Antibody Negative (Negative) 11/04/16 11:26 Blood Type AB POSITIVE 11/04/16 11:56 Antibody Screen NEGATIVE 11/04/16 11:56
[2016-11-06] MEDS: MULTIVITAMIN W/MINERALS TABLET PO SCH (08:43)
[2016-11-06] MEDS: CIPROFLOXACIN 250 MG TABLET PO SCH (08:43)
[2016-11-06] MEDS: CHOLECALCIFEROL 5,000 UNIT CAPSULE PO SCH (08:43)
[2016-11-06] MEDS: SACCHAROMYCES BOULARDII 250 MG CAPSULE PO SCH (08:43)
[2016-11-06] MEDS: DICYCLOMINE 10 MG CAPSULE PO SCH (08:43)
[2016-11-06] MEDS: ALPRAZolam 0.25 MG TABLET PO SCH (08:44)
[2016-11-06 09:30] VITALS: BP 104/64
[2016-11-06 18:12] LABS: ANA SCREEN POSITIVE (NEGATIVE); ANA TITER 1:40 titer (())
--- NOTE | 2016-11-06 20:03 | DISCHARGE SUMMARY ---
DATE OF ADMISSION: 11/04/2016 DATE OF DISCHARGE: 11/06/2016 PRIMARY CARE PHYSICIAN: Dr. Dumont. DISCHARGE DIAGNOSES: 1. Colitis of the descending colon. 2. Possible diverticulitis. 3. Lower gastrointestinal bleed. 4. Iron deficiency anemia. SECONDARY DIAGNOSES: Include 1. History of diverticulosis. 2. History chronic low back pain. CONSULTATIONS: Dr. Padilla of general surgery. PROCEDURES: None. DIAGNOSTIC IMAGING STUDIES: Abdominal pelvis CT 11/04/2016, findings: 1. Mild colonic diverticular disease. 2. Long segment wall thickening of the colon involving the descending colon extending to the sigmoid, does not appear centered around a particular diverticulum. This has adjacent fat stranding. No abscess or pneumoperitoneum. Appearance most consistent with colitis per the radiologist read. 3. Leiomyomatous uterus. DIAGNOSTIC LABORATORY STUDIES: CBC on admission, white count 11.7, hemoglobin 11.1, hematocrit 32.9, platelets 228,000. Discharge white count was 9.7. ESR at admission 15, on 11/06/2016 it was 29. CRP 1.6 on admission, 10.0 on 11/05/2016 and 4.7 on 11/06/2016. Chemistries on admission, sodium 138, potassium 3.7, chloride 103, bicarbonate 26, BUN 11, creatinine 0.7, glucose 105. Iron studies: Iron 14, TIBC 363, percent saturation 4, transferrin 259, ferritin 104.5 (note this was in setting of inflammation/colitis) A TSH was 0.60. H pylori antibody was negative. Stool cultures ordered/ not obtained BRIEF HOSPITAL COURSE BY PROBLEMS: 1. Colitis. This is a 31-year-old female who presented after several episodes of bright red blood per rectum at home. She had had nausea and fatigue for approximately a week prior to presentation with no vomiting or hematemesis. She also had left lower quadrant abdominal pain along with the grossly bloody bowel movements on the day of presentation. In the emergency room, she was hemodynamically stable. Her hemoglobin and hematocrit were 11.1 and 32.9 and remains stable on discharge 10.1 and 29.2 does reflect IV fluid during the course of hospitalization. She remained hemodynamically stable with no additional hematochezia while here. A CT scan of the abdomen done on admission did show thickening of the left descending colon down to the sigmoid and although she does have mild diverticulosis, the bowel wall thickening does not appear associated with any of the diverticula, and is most consistent with a colitis. She did not have a fever but had a mild leukocytosis on presentation. Initially her sedimentation rate was not elevated but did increase and her CRP was also elevated. Differential for colitis included both infectious and inflammatory colitis. It is highly unlikely that a 31-year-old had an ischemic colitis. She was empirically started on corticosteroids as well as Cipro and Flagyl and Dr. Padilla of general surgery was also consulted. There was no further stool to be sent for fecal pathogens, but she does continue on Cipro and Flagyl Regarding the possibility of this being an inflammatory bowel disease , she has had recurrent episodes of discomfort with prior imaging studies not showing any thickened bowel or stranding. She does not have any weight loss or obvious malabsorption. She does have an iron deficiency anemia, although the iron studies particularly ferritin need to be repeated when she is not acutely inflamed as the ferritin is obviously an acute phase reactant and could not be reliably measured right now. In the circumstance this could be IBD, it does at times take as long as 5 years to make a diagnosis of inflammatory bowel disease a mild presentation. She will need outpatient GI or surgery followup initially to get a colonoscopy when the inflammation has improved. This can be either done through a referral to the surgical Clinic for Dr. Esposito to do the colonoscopy or to a doubler operator. . She did tolerate a diet advanced from clears to full and did tolerate a regular diet on the morning of 11/06/2016. She is instructed to take the additional 2 days of 40 mg of prednisone and then she can reduce to 30 mg of prednisone daily. If there is no exacerbation of her discomfort, and no recurrent hematochezia, she can be directed further on a steroid taper by her primary care physician. She is to finish an additional 9 days of ciprofloxacin and Flagyl and as noted she needs a colonoscopy and tissue biopsy to determine the nature of this colitis. She also was given a prescription for dicyclomine in case she has any bowel spasms. 2. Possible diverticulitis. As noted she is on Cipro and Flagyl. The thickening of the descending colon rather than just the sigmoid argues more towards colitis as opposed to a diverticulitis, but the cipro/flagyl would treat that as well.3. Iron deficiency anemia. Although her ferritin is likely spurious in the setting of acute inflammation, her iron studies were suggestive of iron deficiency anemia. She was given a dose of IV Venofer here. This will need further outpatient evaluation and ideally retesting when she no longer has acute inflammation for more accurate evaluation of those iron studies. 4. Chronic low back pain. She continues on her home regimen for chronic low back pain. DISCHARGE MEDICATIONS: NEW PRESCRIPTIONS: 1. Prednisone 40 mg. once daily for 2 additional days, then she reduce to 30 mg once daily with further taper instructions as per primary physician. 2. Ciprofloxacin 500 mg twice daily for 9 more days. 3. Flagyl 500 mg 3 times daily for an additional 9 days. 4. Dicyclomine 10 mg 4 times daily p.r.n. abdominal spasm. She will continue her home medicines of: 1. Valium 5 mg 3 times daily p.r.n. muscle spasm. 2. Zanaflex 4 mg 3 times daily p.r.n. spasm. 3. Tramadol 50-100 mg 4 times daily if needed for back pain. 4. Zolpidem 10 mg each evening for sleep if needed. 5. Oxycodone/acetaminophen 5/325 1 to 2 tabs every 6 hours if needed for back pain. 6. Zofran 4 mg 3 times daily if needed for nausea. 7. She is to continue her home control lvlgiufjjusir-srrxxrn-wbplzoubl, also called Dasetta. 8. Trazodone 50 mg. once each evening. DISCHARGE INSTRUCTIONS: The patient is to followup with Dr. Dumont. She will need a referral either for Gastroenterology to evaluate her for colonoscopy versus with Dr. Chris Esposito for colonoscopy and biopsy and then followup with Gastroenterology. Consider reevaluate her iron studies after she is over the acute inflammation and reevaluate possible iron deficiency anemia and further taper the patient's prednisone depending on her symptomatic response on the current prednisone. PHYSICAL EXAM ON DISCHARGE; Afebrile, heart rate, blood pressure RR unremarkable GENERAL; PLEASANT young woman lying in bed with heat pad over abdomen,no acute distress, tolerateed regular diet. nontoxic appearing Chest CTA, unlabored respirations Heart Regular S1S2,no murmur, rub, Abdomen; soft, + BS, nontender LLQ today (previously localized LLQ tenderness. Mild RLQ tenderness, no guarding,no repbound Ext; skin warm , dry no edema JOB #: [id number] EXT JOB #:[id number] ADAMA
[2016-11-09 17:16] LABS: GLIADIN (DEAMIDATED) AB IGA 4 U (<20); GLIADIN (DEAMIDATED) AB IGG 3 U (<20); IMMUNOGLOBULIN A 90 mg/dL (81-463); TISSUE TRANSGLUTAMINASE IGA <1 U/mL (()); TISSUE TRANSGLUTAMINASE IGG <1 U/mL (())
== END 2016-11-06 11:15 | disposition home or self-care (01) | DRG 392 ==
LOC: ED 10:56 → MS 15:44
PROVIDERS: ADMIT Nurse Practitioner; ATTEND Nurse Practitioner
DX: K52.9 Noninfective gastroenteritis and colitis, unspecified (principal); K57.32 Diverticulitis of large intestine without perforation or abscess without bleeding; K92.2 Gastrointestinal hemorrhage, unspecified; D50.9 Iron deficiency anemia, unspecified; G89.29 Other chronic pain; M54.9 Dorsalgia, unspecified; M79.7 Fibromyalgia; M41.9 Scoliosis, unspecified; R45.1 Restlessness and agitation; E04.9 Nontoxic goiter, unspecified; K58.9 Irritable bowel syndrome, unspecified; D25.9 Leiomyoma of uterus, unspecified; F17.210 Nicotine dependence, cigarettes, uncomplicated; M47.899 Other spondylosis, site unspecified; Z84.89 Family history of other specified conditions; Z79.891 Long term (current) use of opiate analgesic; Z79.3 Long term (current) use of hormonal contraceptives; Z79.899 Other long term (current) drug therapy; Z87.442 Personal history of urinary calculi
CPT/HCPCS: 36415; 74177; 80053; 80061; 82530; 82607; 82652; 82728; 82784; 83516; 83540; 83690; 83735; 84436; 84443; 84466; 84481; 84703; 85018; 85025; 85384; 85610; 85651; 85730; 86021; 86038; 86140; 86200; 86256; 86850; 86900; 86901; 87339; 87493; 96361; 96374; 96375; 96376; 99284

== ENCOUNTER 2016-11-18 15:13 | Outpatient (CLI) | payer BC ==
[2016-11-18 15:51] LABS: BASOPHILS # (AUTO) 0.1 10^3/uL (0.0-0.1); BASOPHILS % (AUTO) 0.4 %; EOSINOPHILS % (AUTO) 0.3 %; HCT - HEMATOCRIT 42.3 % (37.0-47.0); HGB - HEMOGLOBIN 14.1 g/dL (12.0-16.0); LYMPHOCYTES # (AUTO) 3.1 10^3/uL (1.5-3.5); LYMPHOCYTES % (AUTO) 25.9 %; MEAN CORPUSCULAR HEMOGLOBIN 29.3 pg (27.0-31.0); MEAN CORPUSCULAR HGB CONC 33.4 g/dL (32.0-36.0); MEAN CORPUSCULAR VOLUME 87.7 fL (81.0-99.0); MEAN PLATELET VOLUME 8.2 fL (7.9-10.8); MONOCYTES # (AUTO) 0.5 10^3/uL (0.0-1.0); MONOCYTES % (AUTO) 4.5 %; NEUTROPHILS # (AUTO) 8.1 10^3/uL (1.5-6.6); NEUTROPHILS % (AUTO) 68.9 %; RED BLOOD COUNT 4.83 10^6/uL (4.20-5.40); RED CELL DISTRIBUTION WIDTH 12.8 % (12.0-15.0); UNCORRECTED WHITE BLOOD COUNT 11.8 x10^3/uL; WHITE BLOOD COUNT 11.8 x10^3/uL (4.8-10.8)
[2016-11-18 16:01] LABS: ALBUMIN/GLOBULIN RATIO 1.6 (1.0-2.2); BILIRUBIN,TOTAL 0.3 mg/dL (0.2-1.0); BUN - BLOOD UREA NITROGEN 13 mg/dL (6-20); CALCIUM 9.8 mg/dL (8.5-10.3); CARBON DIOXIDE - CO2 27 mmol/L (21-32); CHLORIDE 99 mmol/L (101-111); CREATININE 0.6 mg/dL (0.4-1.0); GFR - MDRD 116 (>89); GLUCOSE 87 mg/dL (70-100); IRON 126 ug/dL (28-170); POTASSIUM 4.2 mmol/L (3.5-5.0); SODIUM 137 mmol/L (135-145); TOTAL IRON BINDING CAPACITY 431 ug/dL (250-450); TOTAL PROTEIN 7.8 g/dL (6.7-8.2); TRANSFERRIN 308 mg/dL (192-382)
== END 2016-11-18 15:14 | disposition home or self-care (01) ==
LOC: LAB 15:13
PROVIDERS: ATTEND Family Medicine
DX: R73.01 Impaired fasting glucose (principal); K57.30 Diverticulosis of large intestine without perforation or abscess without bleeding
CPT/HCPCS: 36415; 80053; 82728; 83540; 84466; 85025; 85651; 86140

== ENCOUNTER 2016-12-03 13:06 | Day surgery (SDC) | payer BC ==
[2016-12-03 13:41] LABS: HCG UR QUAL NEGATIVE
[2016-12-03] MEDS ORDERED: LACTATED RINGERS 1,000 ML IV ONE (14:00)
[2016-12-03] MEDS ORDERED: MIDAZOLAM 2 MG/2 ML VIAL IVP ONE (14:58)
[2016-12-03] MEDS ORDERED: fentaNYL 100 MCG/2 ML VIAL IVP ONE (14:58)
[2016-12-03] MEDS ORDERED: PROPOFOL 200 MG/20 ML VIAL IVP ONE (14:58)
[2016-12-03 16:31] VITALS: BP 108/92
== END 2016-12-03 13:07 | disposition home or self-care (01) ==
LOC: SDS 13:06
PROVIDERS: ATTEND Surgery
PROC: 0DBN8ZX Excision of Sigmoid Colon, Via Natural or Artificial Opening Endoscopic, Diagnostic (ICD-10-PCS; 2016-12-03)
PROC: 0DBP8ZX Excision of Rectum, Via Natural or Artificial Opening Endoscopic, Diagnostic (ICD-10-PCS; principal; 2016-12-03 14:00)
DX: K63.89 Other specified diseases of intestine (principal); R10.32 Left lower quadrant pain; K92.1 Melena; F17.210 Nicotine dependence, cigarettes, uncomplicated; K57.30 Diverticulosis of large intestine without perforation or abscess without bleeding; K64.8 Other hemorrhoids; Q27.33 Arteriovenous malformation of digestive system vessel
CPT/HCPCS: 45380; 81025; J7120; 88305

== ENCOUNTER 2016-12-17 10:35 | Outpatient (CLI) | payer BC ==
--- NOTE | 2016-12-17 15:55 | Ultrasound Report ---
THYROID ULTRASOUND: 12/17/2016 CLINICAL INDICATION: Followup cystic nodule left lobe of the thyroid, followup lymph nodes. COMPARISON: Thyroid ultrasound of 02/11/2016, soft tissue neck ultrasound of 03/27/2016. TECHNIQUE: Real-time scanning was performed with customer service representative static images obtained. FINDINGS: The right lobe measures 5.4 x 1.6 x 0.8 cm, and the left lobe measures 5.1 x 2.0 x 1.3 cm. The isthmus measures 3 mm. The cystic nodule in the lower pole of the left lobe has not changed sign ificantly in size, now measuring 3.1 x 2.0 x 1.9 cm (previously 2.8 x 2.1 x 1.6 cm). No new nodule is seen. Normal sized lymph nodes are again noted. No lymphadenopathy is identified. IMPRESSION: STABLE APPEARANCE OF CYSTIC NODULE IN THE LOWER POLE OF THE LEFT LOBE OF THE THYROID. ST ABLE NORMAL SIZED LYMPH NODES. NO LYMPHADENOPATHY OR NEW SUSPICIOUS THYROID NODULE IS IDENTIFIED. JOB #: [id number] EXT JOB #:[id number]
== END 2016-12-17 10:36 | disposition home or self-care (01) ==
LOC: DI 10:35
PROVIDERS: ATTEND Family Medicine
DX: E04.1 Nontoxic single thyroid nodule (principal)
CPT/HCPCS: 76536

== ENCOUNTER 2016-12-28 14:40 | Outpatient (CLI) | payer BC ==
--- NOTE | 2016-12-28 17:45 | MRI Report ---
EXAM: MRI LUMBAR SPINE WITHOUT CONTRAST EXAM DATE: 12/28/2016 03:15 PM. CLINICAL HISTORY: LOW BACK PAIN and bilateral hip and leg pain with numbness. COMPARISON: Prior plain film lumbar spine 07/28/2016, prior MRI lumbars line 01/25/2016. TECHNIQUE: Multiplanar, multisequence T1-weighted and fluid-sensitive sequences of the lumbar spine f rom T12 to S1 without contrast. Other: None. Findings: Relevant images are indicated (image number, series number). There are 5 asx-otm-ntzbzin lumbar vertebrae present. Conus terminates at T12-L1. There is no abnorma l lumbar cord signal, there is no suspicious marrow lesion. Partly visualized bilateral sacroiliac donell ints demonstrate mild degenerative changes, , with suspected partly visualized, partial sacralization left L5 transverse process, left S1 sacral ala. Surrounding skeletal muscle is unremarkable. Chronic multilevel lower lumbar spine posterior facet de generative changes are present. There is partial visualization of suspected 2 cm right ovarian cyst, and the visualized (13, 301). Low signal intensity mass appears present within the anterior fundus of the uterus (6, 301), suggestive of a fibroid. Partly visualized T11-T12 through L4-L5: No significant canal stenosis or neural foraminal narrowing. Mild multilevel lower lumbar posterior facet degenerative changes, without marisela-facet edema. L5-S1: No significant canal stenosis or neural foraminal narrowing. Remaining upper sacral canal is unremarkable. There is trivial fluid in the cul-de-sac. Impressions: 1. No abnormal lumbar cord signal or suspicious marrow lesion. No significant lumbar spondylosis as d escribed. 2. Suspected partial sacralization of the left L5 transverse process, left S1 sacral ala, with only m ild suspect degenerative changes of the partly visualized bilateral sacroiliac joints. 3. Suspected uterine fibroid ventral fundus 2.3 cm diameter, suspected partly visualized right ovaria n 2 cm cyst, these findings can be further evaluated by pelvic ultrasound. Trivial fluid within the c ul-de-sac. Comment: The following findings are so common in adults without low back pain that while we report th eir presence, they must be interpreted with caution and in the context of the clinical situation. (Re aarti Martines et al, Spine 2001) Prevalence of findings in patients without low back pain: Disk degeneration (any evidence): 92% Disk desiccation/T2 signal loss: 83% Disk height loss: 56% Disk bulge: 64% Disk protrusion: 32% Annular tear/high intensity zone: 38% [facility] Referring Provider Line: [phone] SITE ID: [id number]
== END 2016-12-28 14:41 | disposition home or self-care (01) ==
LOC: DI 14:40
PROVIDERS: ATTEND Family Medicine
DX: M47.898 Other spondylosis, sacral and sacrococcygeal region (principal); M47.896 Other spondylosis, lumbar region
CPT/HCPCS: 72148

== ENCOUNTER 2017-03-08 15:47 | Outpatient (CLI) | payer BC ==
--- NOTE | 2017-03-09 10:43 | XRAY Report ---
AP VIEW OF THE PELVIS: 03/08/2017 HISTORY: Pain. COMPARISON: CT abdomen and pelvis 11/04/2016. FINDINGS: A single AP view of the pelvis shows the hip and sacroiliac joints to be well-maintained. Asymmetric articulation at the lumbosacral junction with lumbarization of S1 on the right. No evide nce of fracture, bone destruction, malalignment, or other abnormality. IMPRESSION: NEGATIVE AP VIEW OF THE PELVIS. JOB #: [id number] EXT JOB #:[id number]
--- NOTE | 2017-03-09 10:48 | XRAY Report ---
CERVICAL SPINE, THREE VIEWS: 03/08/2017 History: Neck pain. COMPARISON: MRI cervical spine 01/25/2016. FINDINGS: There is reversal of the normal cervical lordosis. Minimal anterolisthesis C2 on C3, C3 o n C4, and C4 on C5 may be related to the reversed lordosis. Vertebral bodies otherwise unremarkable in height and alignment. Degenerative disk space narrowing C5-6, C6-7, and C7-T1. The C1-2 alignmen t appears anatomic. No prevertebral soft tissue swelling or significant facet joint arthropathy. IMPRESSION: EARLY DEGENERATIVE CHANGE CERVICAL SPINE SIMILAR TO 01/25/2016 WITHOUT SUPERIMPOSED ACUT E FINDINGS. JOB #: [id number] EXT JOB #:[id number]
--- NOTE | 2017-03-09 10:56 | XRAY Report ---
LUMBAR SPINE: 03/08/2017 HISTORY: Back pain. COMPARISON: 12/28/2016 lumbar MRI. FINDINGS: There is lumbarization of S1 on the right. The vertebral bodies are normal in height and alignment. Disk spaces are well-maintained. No significant facet joint arthropathy. Sacroiliac and hip joints well-maintained. IMPRESSION: STABLE LUMBAR PLAIN FILMS COMPARED WITH 12/28/2016. DEVELOPMENTAL ASYMMETRY AT THE LUMB OSACRAL JUNCTION. OTHERWISE NEGATIVE. JOB #: [id number] EXT JOB #:[id number]
== END 2017-03-08 15:48 | disposition home or self-care (01) ==
LOC: DI.N 15:47
PROVIDERS: ATTEND Internal Medicine Rheumatology
DX: M54.2 Cervicalgia (principal); M54.5 Low back pain; R10.2 Pelvic and perineal pain
CPT/HCPCS: 72040; 72100; 72170

== ENCOUNTER 2017-04-09 19:51 | Emergency (ER) | payer BC ==
[2017-04-09 20:14] VITALS: BP 115/81
[2017-04-09] MEDS ORDERED: TETANUS/DIPHTHERIA/PERTUSSIS 0.5 ML SYRINGE IM ONE ×2 (20:37→21:03)
--- NOTE | 2017-04-09 20:43 | ED Physician Documentation ---
History of Present Illness - Stated complaint Stated Complaint: FINGER LAC - Chief complaint Chief Complaint: Laceration - History obtained from History obtained from: Patient - History of Present Illness Timing: Today, How many hours ago (1) Pain level max: 1 Pain level now: 1 Improved by: pressure Worsened by: moving - Additonal information Additional information: L index finger 2/2 a knife at home. Last Td is unknown. Pt is right handed. Washed well prior to arrival in the ED. Review of Systems : denies: Now EGA Neurologic: denies: Focal weakness, Numbness PD PAST MEDICAL HISTORY - Past Medical History Past Medical History: Yes Cardiovascular: None Respiratory: Other Neuro: None Endocrine/Autoimmune: Other GI: None : Kidney stones HEENT: None Psych: Claustrophobia Musculoskeletal: Osteoarthritis, Fibromyalgia, Chronic back pain, Other Derm: None - Past Surgical History Past Surgical History: Yes General: Appendectomy, Colonoscopy HEENT: Tonsil/Adenoidectomy - Present Medications Home Medications: Ambulatory Orders Medication Instructions Recorded Confirmed diazePAM [Valium] 5 mg PO TID PRN 05/10/16 12/03/16 traMADol [Ultram] 300 mg PO DAILY 05/10/16 12/03/16 Zolpidem [Ambien] 10 mg PO QPM 11/04/16 12/02/16 tiZANidine [Zanaflex] 4 mg PO TID PRN 11/04/16 12/03/16 Norethindrone-Ethinyl Estrad 1 tab PO DAILY 11/05/16 12/02/16 [Dasetta 1-35-28 Tablet] Dicyclomine [Bentyl] 10 mg PO QID PRN #30 capsule 11/06/16 12/03/16 Acetaminophen [Tylenol Arthritis] 2 DAILY 12/03/16 Ibuprofen 1 BID 12/03/16 oxyCODONE [Roxicodone] 1 Q4HR 12/03/16 - Allergies Allergies/Adverse Reactions: Allergies Allergy/AdvReac Type Severity Reaction Status Date / Time sulfamethoxazole Allergy Edema Verified 04/09/17 20:12 [From Bactrim] trimethoprim [From Bactrim] Allergy Edema Verified 04/09/17 20:12 - Social History Does the pt smoke?: No Smoking Status: Never smoker Does the pt drink ETOH?: No Does the pt have substance abuse?: No - Immunizations Immunizations are current?: Yes - POLST Patient has POLST: No PD ED PE NORMAL - Vitals Vital signs reviewed: Yes - General General: Alert and oriented X 3, No acute distress - Derm Derm: Warm and dry - Extremities Extremities: Other (L index finger - superficial laceration along the lateral aspect of the finger. 2cm, linear. not bleeding. ) - Neuro Neuro: Alert and oriented X 3 Results - Vitals Vitals: Vital Signs - 24 hr 04/09/17 04/09/17 20:12 21:06 Temperature 36.2 C L Heart Rate 74 72 Respiratory 14 17 Rate Blood Pressure 115/81 H O2 Saturation 100 99 Oxygen O2 Source Room air PD MEDICAL DECISION MAKING - ED course Complexity details: considered differential, d/w patient ED course: Patient is a 32-year-old female who presents to the emergency department with superficial laceration to left index finger. Not bleeding here. Bandage applied, bacitracin applied. Splint applied. Does not require any repair. Tdap given Patient counseled regarding signs and symptoms for which I believe and urgent re-evaluation would be necessary. Patient with good understanding of and agreement to plan and is comfortable going home at this time This document was made in part using voice recognition software. While efforts are made to proofread this document, sound alike and grammatical errors may occur. Departure - Departure Disposition: 01 Home, Self Care Clinical Impression: Finger laceration Qualifiers: Encounter type: initial encounter Finger: index finger Damage to nail status: without damage Foreign body presence: without foreign body Laterality: left Qualified Code(s): S61.211A - Laceration without foreign body of left index finger without damage to nail, initial encounter Condition: Good Instructions: ED Laceration Hand Follow-Up: Casey Dumont DO [Primary Care Provider] - Within 1 week Comments: Return if you worsen. Keep the wound clean. Wear the splint for the next 3-4 days. Discharge Date/Time: 04/09/17 21:07
== END 2017-04-09 21:07 | disposition home or self-care (01) ==
LOC: ED 19:51
DX: S61.211A Laceration without foreign body of left index finger without damage to nail, initial encounter (principal); W26.0XXA Contact with knife, initial encounter; Y93.89 Activity, other specified; Y92.009 Unspecified place in unspecified non-institutional (private) residence as the place of occurrence of the external cause; Z23 Encounter for immunization
CPT/HCPCS: 90471; 99283

== ENCOUNTER 2018-02-17 14:03 | Emergency (ER) | payer OTHER ==
--- NOTE | 2018-02-17 17:10 | ED Physician Documentation ---
PD HPI ABD PAIN - Stated complaint Stated Complaint: ABD PX - Chief complaint Chief Complaint: Abd Pain - History obtained from History obtained from: Patient - History of Present Illness Timing - onset: How many days ago (several) Timing - duration: Days Timing - details: Gradual onset, Still present (worse today), Waxing and waning Quality: Aching, Pain Location: Epigastric, LUQ Radiation: Lower back, Left flank Improved by: Position (sitting up) Worsened by: Eating, Position (lying down or flat), Palpation. No: Breathing Associated symptoms: Nausea. No: Fever, Hematemesis, Diarrhea, Constipation, Chest pain Similar symptoms before: Diagnosis (intestinal pain and has had some undiagnosed pains, with prior imaging and colonoscopy due to blood in stool. Dx with some hemorrhoid as well. Hd diverticula on scope. No history of ulcer/ gastritis.) Recently seen: Not recently seen Review of Systems Constitutional: denies: Fever, Chills Nose: denies: Rhinorrhea / runny nose, Congestion Throat: denies: Sore throat Cardiac: denies: Chest pain / pressure, Palpitations Respiratory: denies: Dyspnea, Cough GI: reports: Abdominal Pain, Nausea. denies: Abdominal Swelling, Constipation, Diarrhea, Bloody / black stool : denies: Dysuria, Frequency Skin: denies: Rash Neurologic: reports: Generalized weakness. denies: Focal weakness, Numbness, Near syncope Endocrine: denies: Weight loss PD PAST MEDICAL HISTORY - Past Medical History Cardiovascular: None Respiratory: Other Endocrine/Autoimmune: Other GI: None, GI bleed : Kidney stones HEENT: None Psych: Claustrophobia Musculoskeletal: Osteoarthritis, Fibromyalgia, Chronic back pain, Other Derm: None - Past Surgical History Past Surgical History: Yes General: Appendectomy, Colonoscopy HEENT: Tonsil/Adenoidectomy - Present Medications Home Medications: Ambulatory Orders Medication Instructions Recorded Confirmed Norethindrone-Ethinyl Estrad 1 tab PO DAILY 11/05/16 12/02/16 [[place] 1-35-28 Tablet] Acetaminophen [Tylenol Arthritis] 2 DAILY 12/03/16 Ibuprofen 1 BID 12/03/16 Famotidine [Pepcid] 20 mg PO ONCE #30 tablet 02/17/18 HYDROcod/ACETAM 5/325 [[place] 5/325] 1 tab PO Q6H PRN #15 tablet 02/17/18 Lidocaine Viscous 2% [Xylocaine 5 ml PO Q4H PRN #1 bottle 02/17/18 Viscous 2%] Ondansetron HCl [Zofran] 4 mg PO Q6H PRN #20 tablet 02/17/18 - Allergies Allergies/Adverse Reactions: Allergies Allergy/AdvReac Type Severity Reaction Status Date / Time sulfamethoxazole Allergy Edema Verified 04/09/17 20:12 [From Bactrim] trimethoprim [From Bactrim] Allergy Edema Verified 02/17/18 16:54 - Living Situation Living Situation: reports: With spouse/s.o. Living Arrangement: reports: At home - Social History Does the pt smoke?: No Smoking Status: Current some day smoker Does the pt drink ETOH?: No Does the pt have substance abuse?: No - Family History Family history: reports: Non contributory - Immunizations Immunizations are current?: Yes - POLST Patient has POLST: No PD ED PE NORMAL - Vitals Vital signs reviewed: Yes - General General: Alert and oriented X 3, Well developed/nourished, Other (appears in pain, holding upper abd.) - HEENT HEENT: Pharynx benign - Neck Neck: Supple, no meningeal sign, No adenopathy - Cardiac Cardiac: RRR, No murmur - Respiratory Respiratory: Clear bilaterally - Abdomen Abdomen: Normal bowel sounds, Soft, Non distended, No organomegaly, Other (very tender LUQ area with local guarding. No percussion nor rebound tenderness. ) - Female Female : Deferred - Rectal Rectal: Deferred - Back Back: No CVA TTP - Derm Derm: Normal color, Warm and dry - Extremities Extremities: No deformity, No tenderness to palpate - Neuro Neuro: Alert and oriented X 3, No motor deficit, Normal speech Results - Vitals Vitals: Vital Signs - 24 hr 02/17/18 02/17/18 02/17/18 14:20 17:41 18:33 Temperature 36.5 C Heart Rate 100 104 H 92 Respiratory 20 18 20 Rate Blood Pressure 125/81 H 138/71 H 121/83 H O2 Saturation 98 98 99 02/17/18 02/17/18 19:41 20:42 Temperature 37.0 C Heart Rate 85 95 Respiratory 20 20 Rate Blood Pressure 122/71 124/87 H O2 Saturation 100 98 Oxygen O2 Source Room air - Labs Labs: Laboratory Tests 02/17/18 02/17/18 02/17/18 17:20 17:35 17:35 WBC 11.3 H RBC 4.64 Hgb 13.4 Hct 38.9 MCV 83.9 MCH 29.0 MCHC 34.5 RDW 12.8 Plt Count 264 MPV 7.5 L Neut # (Auto) 7.7 H Lymph # (Auto) 2.9 [place] # (Auto) 0.5 Eos # (Auto) 0.1 Baso # (Auto) 0.1 Absolute Nucleated RBC 0.00 Nucleated RBC % 0.0 Sodium 136 Potassium 3.8 Chloride 101 Carbon Dioxide 23 Anion Gap 12.0 BUN 11 Creatinine 0.6 Estimated GFR (MDRD) 115 Glucose 89 Calcium 9.7 Total Bilirubin 0.6 AST 17 ALT 15 Alkaline Phosphatase 38 L Total Protein 7.9 Albumin 4.5 Globulin 3.4 Albumin/Globulin Ratio 1.3 Lipase 35 Urine Color YELLOW Urine Clarity CLEAR Urine pH 6.0 Ur Specific [place] 1.025 Urine Protein NEGATIVE Urine Glucose (UA) NEGATIVE Urine Ketones TRACE Urine Occult Blood SMALL H Urine Nitrite NEGATIVE Urine Bilirubin NEGATIVE Urine Urobilinogen 0.2 (NORMAL) Ur Leukocyte Esterase NEGATIVE Urine RBC 0-5 Urine WBC 4-5 Ur Squamous Epith Cells MANY Squamous H Urine Bacteria Many H Ur Microscopic Review INDICATED Urine Culture Comments NOT INDICATED Urine HCG, Qual NEGATIVE - Rads (name of study) abd CT Radiology: Prelim report reviewed (diverticula without diverticulitis. Renal stone seen. No acute process. left 2.8 cm ovarian cyst without free fluid. ) PD MEDICAL DECISION MAKING - ED course Complexity details: reviewed old records, reviewed results (CT did not show acute process. ), re-evaluated patient (pain lessened with meds. GI cocktail did help some. She did not have to have BM here so defer H.PPylori test. ), considered differential (symptoms c/w gastritis. Consider diverticulitis (had diverticula on prior colonoscopy) as pain more LUQ. Will get labs and CT. ), d/ w patient - Sepsis Event Vital Signs: Vital Signs - 24 hr 02/17/18 02/17/18 02/17/18 14:20 17:41 18:33 Temperature 36.5 C Heart Rate 100 104 H 92 Respiratory 20 18 20 Rate Blood Pressure 125/81 H 138/71 H 121/83 H O2 Saturation 98 98 99 02/17/18 02/17/18 19:41 20:42 Temperature 37.0 C Heart Rate 85 95 Respiratory 20 20 Rate Blood Pressure 122/71 124/87 H O2 Saturation 100 98 Oxygen O2 Source Room air Departure - Departure Disposition: 01 Home, Self Care Clinical Impression: Abdominal pain Qualifiers: Abdominal location: upper abdomen, unspecified Qualified Code(s): R10.10 - Upper abdominal pain, unspecified Gastritis Qualifiers: Gastritis type: unspecified gastritis Chronicity: acute Gastritis bleeding: without bleeding Qualified Code(s): K29.00 - Acute gastritis without bleeding Condition: Stable Record reviewed to determine appropriate education?: Yes Instructions: ED Abdominal Pain Unkn Cause, ED Gastritis Follow-Up: Casey Dumont DO [Primary Care Provider] - Prescriptions: Famotidine [Pepcid] 20 mg PO ONCE #30 tablet HYDROcod/ACETAM 5/325 [[place] 5/325] 1 tab PO Q6H PRN #15 tablet PRN Reason: Pain Lidocaine Viscous 2% [Xylocaine Viscous 2%] 5 ml PO Q4H PRN #1 bottle PRN Reason: Pain Ondansetron HCl [Zofran] 4 mg PO Q6H PRN #20 tablet PRN Reason: Nausea / Vomiting Comments: Your CT scan and lab tests appear normal. I presume this is an irritation of the stomach such as gastritis or ulcer. He can bring a stool sample to your primary care to have him test for a bacteria called H. pylori. For now we will treated with acid reducing medicine as well as local numbing medicine. Famotidine daily for the next month. Lidocaine combined with antacids as needed for stomach pain. Ondansetron if needed for nausea. Do not use any anti -inflammatories. Add Tylenol or hydrocodone if needed for pain. Follow-up with your primary care in the next few days if not improved, call to tomorrow morning for an appointment. Discharge Date/Time: 02/17/18 21:00
[2018-02-17 17:25] LABS: BILIRUBIN,URINE NEGATIVE (NEGATIVE); GLUCOSE, URINE (UA) NEGATIVE (NEGATIVE); KETONES,URINE (UA) TRACE mg/dL (NEGATIVE); LEUKOCYTE ESTERASE, URINE NEGATIVE (NEGATIVE); NITRITE,URINE NEGATIVE (NEGATIVE); OCCULT BLOOD,URINE SMALL (NEGATIVE); PROTEIN,URINE NEGATIVE (NEGATIVE); UROBILINOGEN,URINE 0.2 (NORMAL) E.U./dL (NORMAL)
[2018-02-17] MEDS ORDERED: SODIUM CHLORIDE 0.9% 1,000 ML IV ONE (17:26)
[2018-02-17] MEDS ORDERED: FAMOTIDINE 20 MG/50 ML 50 ML IV ONE (17:26)
[2018-02-17] MEDS ORDERED: ONDANSETRON 4 MG/2 ML VIAL IVP STA ×2 (17:26→18:37)
[2018-02-17] MEDS ORDERED: MORPHINE 10 MG/ML VIAL IVP STA (17:26)
[2018-02-17 17:29] LABS: CLARITY,URINE CLEAR (CLEAR); HCG UR QUAL NEGATIVE
[2018-02-17 17:37] LABS: BACTERIA,URINE Many /HPF (None Seen); RBC,URINE 0-5 /HPF (0-5); SQUAMOUS EPITHELIAL CELL,UR MANY Squamous (<= Few)
[2018-02-17 17:50] LABS: BASOPHILS # (AUTO) 0.1 10^3/uL (0.0-0.1); EOSINOPHILS # (AUTO) 0.1 10^3/uL (0.0-0.7); EOSINOPHILS % (AUTO) 1.2 %; HGB - HEMOGLOBIN 13.4 g/dL (12.0-16.0); LYMPHOCYTES # (AUTO) 2.9 10^3/uL (1.5-3.5); LYMPHOCYTES % (AUTO) 25.8 %; MEAN CORPUSCULAR HGB CONC 34.5 g/dL (32.0-36.0); MEAN CORPUSCULAR VOLUME 83.9 fL (81.0-99.0); MEAN PLATELET VOLUME 7.5 fL (7.9-10.8); MONOCYTES # (AUTO) 0.5 10^3/uL (0.0-1.0); MONOCYTES % (AUTO) 4.1 %; NEUTROPHILS # (AUTO) 7.7 10^3/uL (1.5-6.6); NEUTROPHILS % (AUTO) 67.9 %; PLT - PLATELET COUNT 264 10^3/uL (130-450); RED BLOOD COUNT 4.64 10^6/uL (4.20-5.40); RED CELL DISTRIBUTION WIDTH 12.8 % (12.0-15.0); WHITE BLOOD COUNT 11.3 x10^3/uL (4.8-10.8)
[2018-02-17 18:13] LABS: ALBUMIN 4.5 g/dL (3.2-5.5); ALBUMIN/GLOBULIN RATIO 1.3 (1.0-2.2); BILIRUBIN,TOTAL 0.6 mg/dL (0.2-1.0); CALCIUM 9.7 mg/dL (8.5-10.3); CREATININE 0.6 mg/dL (0.4-1.0); TOTAL PROTEIN 7.9 g/dL (6.7-8.2)
[2018-02-17] MEDS ORDERED: HYDROmorphone 1 MG/ML CARPUJECT IVP STA ×2 (18:23→20:25)
[2018-02-17] MEDS ORDERED: KETOROLAC 60 MG/2 ML VIAL IVP STA (18:24)
[2018-02-17] MEDS ORDERED: IOPAMIDOL-300 100 ML VIAL ONE (18:29)
[2018-02-17] MEDS ORDERED: IOPAMIDOL-300 100 ML VIAL IVP ONE (19:11)
--- NOTE | 2018-02-17 19:41 | CT Report ---
Reason: left upper/epigastric pain for 2-3 days Procedure Date: 02/17/2018 Accession Number: [id number] / [id number] Procedure: CT - Abdomen/Pelvis W/ CPT Code: FULL RESULT: EXAM: CT ABDOMEN AND PELVIS EXAM DATE: 02/17/2018 06:53 PM. CLINICAL HISTORY: Left upper/epigastric pain for 2-3 days. COMPARISONS: Abdomen/pelvis with contrast 11/04/2016. TECHNIQUE: Routine helical CT imaging was performed through the abdomen and pelvis. IV contrast: 100 mL Isovue 300. Enteric contrast: No. Reconstructions: Coronal and sagittal. In accordance with CT protocol optimization, one or more of the following dose reduction techniques were utilized for this exam: automated exposure control, adjustment of mA and/or KV based on patient size, or use of iterative reconstructive technique. FINDINGS: Lung Bases: Unremarkable. Liver: Normal. No masses. Gallbladder/Bile Ducts: Unremarkable. Spleen: Normal. Pancreas: Normal. Adrenal Glands: Normal. Kidneys: There is a 7 mm calyceal stone at the mid aspect of the right kidney. The kidneys are otherwise unremarkable. Peritoneal Cavity/Bowel: Diverticulosis without diverticulitis. No small bowel obstruction. No free air or fluid collections. No evidence of appendicitis. Pelvic Organs: There is a 2.8 cm left ovarian cyst. A mildly enhancing 2.9 cm fibroid is seen at the left uterine fundus. No pelvic lymphadenopathy or fluid collections. The urinary bladder is unremarkable. Vasculature: No aneurysms or other significant abnormality. Bones: No significant abnormality. Other: None. IMPRESSION: 1. Nonobstructing right intrarenal stone. 2. Diverticulosis without diverticulitis or other acute inflammatory process. 3. Left ovarian 2.8 cm cyst. 4. Uterine fibroid. RADIA
[2018-02-17] MEDS ORDERED: MAG HYDROX/AL HYDROX/SIMETH 30 ML UDC PO STA (20:26)
[2018-02-17] MEDS ORDERED: LIDOCAINE VISCOUS 2% 15 ML UDC MM STA (20:26)
[2018-02-17] MEDS ORDERED: ONDANSETRON ODT 4 MG Prepack 2 TL STA (20:27)
[2018-02-17] MEDS ORDERED: oxyCODONE/ACET 5/325 Prepack 4 PO STA (20:27)
[2018-02-17 20:43] VITALS: BP 124/87
== END 2018-02-17 21:00 | disposition home or self-care (01) ==
LOC: ED 14:03
DX: R10.12 Left upper quadrant pain (principal); K29.70 Gastritis, unspecified, without bleeding; N20.0 Calculus of kidney; N83.202 Unspecified ovarian cyst, left side; D25.9 Leiomyoma of uterus, unspecified; F17.200 Nicotine dependence, unspecified, uncomplicated
CPT/HCPCS: 74177; 80053; 81001; 81025; 83690; 85025; 96365; 96375; 96376; 99283; 99284; A9270; J1170; Q9967; 81003; 87086

== ENCOUNTER 2019-09-06 14:19 | Outpatient (CLI) | payer OTHER ==
--- NOTE | 2019-09-06 15:00 | XRAY Report ---
Reason: CHRONIC BACK PAIN AND SPASM Procedure Date: 09/06/2019 Accession Number: [id number] / [id number] Procedure: XR - Thoracic Spine 2 View CPT Code: Final Report FULL RESULT: EXAM: THORACIC SPINE RADIOGRAPHY EXAM DATE: 09/06/2019 02:39 PM. CLINICAL HISTORY: Chronic back pain and spasm. COMPARISON: THORACIC SPINE 2 VIEW 04/23/2017 12:07 PM. TECHNIQUE: 2 views. FINDINGS: Alignment: There is minimal leftward thoracic scoliosis, which may be accentuated by positioning. No hyperkyphosis. No pathologic subluxation. Bones: No fractures or bone lesions. Disks: Normal. Disk heights are maintained. Soft Tissues: Normal. The visualized lungs and cardiomediastinal silhouette are normal. IMPRESSION: No significant degenerative changes detected. RADIA
--- NOTE | 2019-09-06 15:02 | XRAY Report ---
Reason: CHRONIC BACK PAIN AND SPASM Procedure Date: 09/06/2019 Accession Number: [id number] / [id number] Procedure: XR - Lumbar Spine 2 View CPT Code: Final Report FULL RESULT: EXAM: LUMBOSACRAL SPINE RADIOGRAPHY EXAM DATE: 09/06/2019 02:40 PM. CLINICAL HISTORY: Chronic back pain and spasm. COMPARISONS: Lumbar spine 2 views 04/23/2017. TECHNIQUE: 2 views. FINDINGS: Alignment: Normal. No spondylolisthesis or scoliosis. There is partial lumbarization of the S1 vertebral body. No vertebral body height loss to indicate fracture. Disk space heights appear maintained. No significant osteophytic spurring. No scoliosis. The imaged portion of the sacroiliac joints appear within normal limits. IMPRESSION: No significant degenerative changes identified. RADIA
== END 2019-09-06 14:20 | disposition home or self-care (01) ==
LOC: DI 14:19
PROVIDERS: ATTEND Physician Assistant Medical
DX: M54.5 Low back pain (principal); M54.6 Pain in thoracic spine; G24.3 Spasmodic torticollis; M62.830 Muscle spasm of back
CPT/HCPCS: 72070; 72100

== ENCOUNTER 2020-03-04 08:00 | Outpatient (CLI) | payer OTHER ==
--- NOTE | 2020-03-05 09:31 | XRAY Report ---
PROCEDURE: Cervical Spine Complete INDICATIONS: CERVICAL RADIOPATHY, LUMBAR RADIOPATHY, RIB PAIN TECHNIQUE: 5 view(s) of the cervical spine were acquired. COMPARISON: 04/23/2017 FINDINGS: Bones: No fractures or dislocations to the T1 level. The lateral masses of C1 appear intact on the odontoid view. There is slight reversal of the normal cervical lordosis with the apex at C5 level. M ild degenerative endplate spur formation from C4 through C7. Mild disc height loss C5-6 and C6-7. No suspicious bony lesions. Neuroforamina are patent on oblique images. Soft tissues: No prevertebral soft tissue swelling. IMPRESSION: 1. No significant changes in mild degenerative endplate and disc changes in the mid to lower cervical spine. 2. No change in reversal of the normal cervical lordosis which may be related to posture or chronic m uscle spasm. Reviewed by: Adrienne Aly MD on 03/05/2020 9:30 AM PDT Approved by: Adrienne Aly MD on 03/05/2020 9:30 AM PDT Station ID: [id number]
--- NOTE | 2020-03-05 09:34 | XRAY Report ---
PROCEDURE: Thoracic Spine 2 View INDICATIONS: CERVICAL RADIOPATHY, LUMBAR RADIOPATHY, RIB PAIN TECHNIQUE: 3 views of the thoracic spine were acquired. COMPARISON: 09/06/2019 FINDINGS: Bones: No fractures or dislocations. Subtle S-shaped scoliosis of the cervicothoracic spine with the major apex at the T2 level. No suspicious bony lesions. 12 pairs of ribs are noted, and appear inta ct where visualized. Soft tissues: No paravertebral stripe thickening. IMPRESSION: 1. No significant changes compared to the prior study. 2. No significant degenerative change. Reviewed by: Adrienne Aly MD on 03/05/2020 9:32 AM PDT Approved by: Adrienne Aly MD on 03/05/2020 9:32 AM PDT Station ID: [id number]
--- NOTE | 2020-03-05 10:13 | XRAY Report ---
PROCEDURE: Lumbar Spine Complete INDICATIONS: CERVICAL RADIOPATHY, LUMBAR RADIOPATHY, RIB PAIN TECHNIQUE: 4 views of the lumbar spine were acquired. COMPARISON: 09/06/2019 FINDINGS: Bones: 6 [id number] vertebrae are present. Partial sacralization of L6. There is normal bony al ignment. No vertebral body compression fractures. No suspicious bony lesions. Oblique images demon strate no pars defects or significant facet degeneration. Soft tissues: Overlying bowel gas pattern is normal. 5 small calcification adjacent over the right k [place]ney, present also on the prior exam.. IMPRESSION: 1. Normal lumbar spine without degeneration. 2. Collection of stable nonobstructing right intrarenal calcifications. Reviewed by: Adrienne Aly MD on 03/05/2020 10:12 AM PDT Approved by: Adrienne Aly MD on 03/05/2020 10:12 AM PDT Station ID: [id number]
== END 2020-03-04 23:59 | disposition home or self-care (01) ==
LOC: DI 08:00
PROVIDERS: ATTEND Family Medicine
DX: M54.12 Radiculopathy, cervical region (principal); M41.83 Other forms of scoliosis, cervicothoracic region; M54.17 Radiculopathy, lumbosacral region; R07.81 Pleurodynia
CPT/HCPCS: 72050; 72070; 72110

== ENCOUNTER 2020-04-24 13:56 | Outpatient (CLI) | payer OTHER ==
--- NOTE | 2020-04-24 15:55 | MRI Report ---
PROCEDURE: Cervical Spine W/O INDICATIONS: CERVICAL RADICULOPATHY TECHNIQUE: Noncontrast sagittal T1 spin echo and T2 fast spin echo, sagittal STIR, foraminal oblique sagittal T2 fast spin echo, and axial gradient echo or T2 fast spin echo through the cervical spine. COMPARISON: None. FINDINGS: Image quality: Excellent. Alignment and Curvature: There is normal bony alignment. There is mild reversal normal cervical spin e curvature. Bone Marrow: Marrow demonstrates normal overall signal. Spinal Cord: Visualized spinal cord has normal size and signal. No cerebellar tonsillar herniation. Paraspinous Soft Tissues: 2.7 cm nodule noted in the left lobe of the thyroid gland. Prevertebral sof t tissues are normal in thickness. C2-C3: Normal in appearance. C3-C4: Loss of disc signal. Minimal, diffuse disc bulge. No central stenosis. Mild bilateral facet hypertrophy. Mild bilateral neural foraminal narrowing. No neural compression. C4-C5: Loss of disc signal. Mild, diffuse disc bulge. No central stenosis. Mild bilateral facet hype rtrophy. No neural foraminal narrowing. No neural compression. C5-C6: Loss of disc signal. Mild, diffuse disc bulge. Small central disc protrusion superimposed upo n diffuse disc bulge. Mild narrowing of the central canal. Mild bilateral facet hypertrophy. No neura l foraminal narrowing. No neural compression. C6-C7: Loss of disc signal and slight loss of disc height. Mild, diffuse disc bulge. Moderate narrow ing of the central canal. Mild bilateral facet hypertrophy. Mild bilateral neural foraminal narrowing . No neural compression. C7-T1: Normal in appearance. IMPRESSION: 1. Multilevel degenerative disc disease. 2. Multilevel facet arthropathy. 3. Moderate C6-7 C7 central canal narrowing. Mild C5-C6 central canal near. 4. Mild bilateral C3-C4 and C6-C7 neural foraminal narrowing. 5. No neural compression. 6. 2.7 cm left thyroid nodule. Recommend thyroid ultrasound for definitive characterization. Reviewed by: Prudence Adrian MD, PhD on 04/24/2020 3:53 PM PST Approved by: Prudence Adrian MD, PhD on 04/24/2020 3:53 PM PST Station ID: [id number]
== END 2020-04-24 13:57 | disposition home or self-care (01) ==
LOC: DI 13:56
PROVIDERS: ATTEND Family Medicine
DX: M50.11 Cervical disc disorder with radiculopathy, high cervical region (principal); M48.02 Spinal stenosis, cervical region; E04.1 Nontoxic single thyroid nodule
CPT/HCPCS: 72141

== ENCOUNTER 2022-02-18 08:00 | Outpatient (CLI) | payer MEDICAID ==
[2022-02-18 20:51] LABS: INFECTIOUS MONONUCLEOSIS NEGATIVE (Negative)
[2022-02-20 03:08] LABS: HCV AB <0.1 s/co ratio (0.0-0.9)
[2022-02-20 06:10] LABS: HIV SCREEN 4TH GENERATION Non Reactive (Non Reactive)
[2022-02-20 08:09] LABS: RPR Non Reactive (Non Reactive)
== END 2022-02-18 23:59 | disposition home or self-care (01) ==
LOC: LAB.N 08:00
PROVIDERS: ATTEND Nurse Practitioner
DX: R59.1 Generalized enlarged lymph nodes (principal)
CPT/HCPCS: 36415; 86308; 86592; 86803; 87389

== ENCOUNTER 2022-02-18 14:58 | Outpatient (CLI) | payer MEDICAID ==
[2022-02-18 20:50] LABS: ESTIMATED AVERAGE GLUCOSE 100 mg/dL (70-100); HEMOGLOBIN A1c% 5.1 % (4.27-6.07)
== END 2022-02-18 14:59 | disposition home or self-care (01) ==
LOC: LAB.N 14:58
PROVIDERS: ATTEND Nurse Practitioner
DX: Z11.3 Encounter for screening for infections with a predominantly sexual mode of transmission (principal)
CPT/HCPCS: 36415; 83036; 84443

== ENCOUNTER 2022-04-17 11:15 | Outpatient (CLI) | payer MEDICAID ==
[2022-04-17 15:49] LABS: BILIRUBIN,URINE NEGATIVE (NEGATIVE); GLUCOSE, URINE (UA) NEGATIVE (NEGATIVE); KETONES,URINE (UA) NEGATIVE (NEGATIVE); LEUKOCYTE ESTERASE, URINE NEGATIVE (NEGATIVE); NITRITE,URINE NEGATIVE (NEGATIVE); OCCULT BLOOD,URINE TRACE-INTA (NEGATIVE); PROTEIN,URINE NEGATIVE (NEGATIVE); UROBILINOGEN,URINE 0.2 (NORMAL) E.U./dL (NORMAL)
[2022-04-17 16:02] LABS: CLARITY,URINE CLOUDY (CLEAR)
[2022-04-17 16:16] LABS: RBC,URINE None Seen /HPF (0-5); WBC,URINE 0-3 /HPF (0-5)
[2022-04-17 16:17] LABS: AMORPHOUS SEDIMENT,UR Marked /LPF; BACTERIA,URINE None Seen /HPF (None Seen); SQUAMOUS EPITHELIAL CELL,UR NONE SEEN (<= Few)
[2022-04-17 23:05] LABS: BACTERIAL VAGINOSIS DNA NEGATIVE (NEGATIVE); CANDIDA GLABRATA DNA NEGATIVE (NEGATIVE); CANDIDA GROUP DNA NEGATIVE (NEGATIVE); CANDIDA KRUSEI DNA NEGATIVE (NEGATIVE); TRICHOMONAS VAGINALIS DNA NEGATIVE (NEGATIVE)
[2022-04-17 23:49] LABS: CHLAMYDIA TRACHOMATIS DNA NEGATIVE (NEGATIVE); NEISSERIA GONORRHOEAE DNA NEGATIVE (NEGATIVE)
== END 2022-04-17 23:59 | disposition home or self-care (01) ==
LOC: LAB.WC 11:15
PROVIDERS: ATTEND Nurse Practitioner
DX: N89.8 Other specified noninflammatory disorders of vagina (principal); R30.0 Dysuria; Z11.3 Encounter for screening for infections with a predominantly sexual mode of transmission
CPT/HCPCS: 81001; 81514; 87086; 87491; 87591; 87661

== ENCOUNTER 2022-09-18 08:00 | Outpatient (CLI) | payer MEDICAID ==
[2022-09-18 22:55] LABS: CHLAMYDIA TRACHOMATIS DNA NEGATIVE (NEGATIVE); NEISSERIA GONORRHOEAE DNA NEGATIVE (NEGATIVE); TRICHOMONAS VAGINALIS DNA NEGATIVE (NEGATIVE)
== END 2022-09-18 23:59 | disposition home or self-care (01) ==
LOC: LAB.WC 08:00
PROVIDERS: ATTEND Nurse Practitioner
DX: Z11.3 Encounter for screening for infections with a predominantly sexual mode of transmission (principal)
CPT/HCPCS: 87491; 87591; 87661

== ENCOUNTER 2022-10-16 08:00 | Outpatient (CLI) | payer MEDICAID ==
[2022-10-16 23:13] LABS: CHLAMYDIA TRACHOMATIS DNA NEGATIVE (NEGATIVE); NEISSERIA GONORRHOEAE DNA NEGATIVE (NEGATIVE); TRICHOMONAS VAGINALIS DNA NEGATIVE (NEGATIVE)
== END 2022-10-16 23:59 | disposition home or self-care (01) ==
LOC: LAB.WC 08:00
PROVIDERS: ATTEND Nurse Practitioner
DX: Z11.3 Encounter for screening for infections with a predominantly sexual mode of transmission (principal)
CPT/HCPCS: 87491; 87591; 87661

== ENCOUNTER 2022-11-11 08:00 | Outpatient (CLI) | payer MEDICAID ==
[2022-11-11 15:55] LABS: BILIRUBIN,URINE NEGATIVE (NEGATIVE); GLUCOSE, URINE (UA) NEGATIVE (NEGATIVE); KETONES,URINE (UA) NEGATIVE (NEGATIVE); LEUKOCYTE ESTERASE, URINE MODERATE (NEGATIVE); NITRITE,URINE POSITIVE (NEGATIVE); OCCULT BLOOD,URINE LARGE (NEGATIVE); PROTEIN,URINE 30 mg/dL (NEGATIVE); UROBILINOGEN,URINE 0.2 (NORMAL) E.U./dL (NORMAL)
[2022-11-11 15:58] LABS: CLARITY,URINE CLOUDY (CLEAR)
[2022-11-11 16:12] LABS: BACTERIA,URINE Many /HPF (None Seen); SQUAMOUS EPITHELIAL CELL,UR FEW Squamous (<= Few); WBC,URINE >25 /HPF (0-5)
[2022-11-11 21:47] LABS: CHLAMYDIA TRACHOMATIS DNA NEGATIVE (NEGATIVE)
[2022-11-11 21:48] LABS: NEISSERIA GONORRHOEAE DNA NEGATIVE (NEGATIVE); TRICHOMONAS VAGINALIS DNA NEGATIVE (NEGATIVE)
== END 2022-11-11 23:59 | disposition home or self-care (01) ==
LOC: LAB.WC 08:00
PROVIDERS: ATTEND Nurse Practitioner
DX: R30.0 Dysuria (principal); Z11.3 Encounter for screening for infections with a predominantly sexual mode of transmission
CPT/HCPCS: 81001; 87086; 87181; 87491; 87591; 87661

== ENCOUNTER 2022-11-19 08:00 | Outpatient (CLI) | payer MEDICAID ==
[2022-11-19 09:46] LABS: BILIRUBIN,URINE NEGATIVE (NEGATIVE); GLUCOSE, URINE (UA) NEGATIVE (NEGATIVE); KETONES,URINE (UA) NEGATIVE (NEGATIVE); LEUKOCYTE ESTERASE, URINE TRACE (NEGATIVE); NITRITE,URINE NEGATIVE (NEGATIVE); OCCULT BLOOD,URINE SMALL (NEGATIVE); PROTEIN,URINE NEGATIVE (NEGATIVE); UROBILINOGEN,URINE 0.2 (NORMAL) E.U./dL (NORMAL)
[2022-11-19 09:47] LABS: CLARITY,URINE CLOUDY (CLEAR)
[2022-11-19 10:02] LABS: BACTERIA,URINE Few /HPF (None Seen); SQUAMOUS EPITHELIAL CELL,UR FEW Squamous (<= Few); WBC CLUMPS,URINE PRESENT; WBC,URINE >25 /HPF (0-5)
[2022-11-19 10:33] LABS: RBC,URINE 0-5 /HPF (0-5)
== END 2022-11-19 23:59 | disposition home or self-care (01) ==
LOC: LAB.WC 08:00
PROVIDERS: ATTEND Obstetrics & Gynecology
DX: R30.0 Dysuria (principal)
CPT/HCPCS: 81001; 87086

== ENCOUNTER 2022-12-14 08:00 | Outpatient (CLI) | payer MEDICAID ==
[2022-12-14 16:46] LABS: BILIRUBIN,URINE NEGATIVE (NEGATIVE); GLUCOSE, URINE (UA) NEGATIVE (NEGATIVE); KETONES,URINE (UA) NEGATIVE (NEGATIVE); LEUKOCYTE ESTERASE, URINE SMALL (NEGATIVE); NITRITE,URINE NEGATIVE (NEGATIVE); OCCULT BLOOD,URINE TRACE-INTA (NEGATIVE); PROTEIN,URINE TRACE mg/dL (NEGATIVE); UROBILINOGEN,URINE 0.2 (NORMAL) E.U./dL (NORMAL)
[2022-12-14 17:01] LABS: BACTERIA,URINE Few /HPF (None Seen); CLARITY,URINE CLEAR (CLEAR); SQUAMOUS EPITHELIAL CELL,UR FEW Squamous (<= Few); WBC CLUMPS,URINE PRESENT
== END 2022-12-14 23:59 | disposition home or self-care (01) ==
LOC: LAB.WC 08:00
PROVIDERS: ATTEND Nurse Practitioner
DX: R30.0 Dysuria (principal)
CPT/HCPCS: 81001; 87086; 87181

== ENCOUNTER 2023-02-02 12:43 | Outpatient (CLI) | payer MEDICAID | END 2023-02-02 12:44 | disposition home or self-care (01) | LOC: DI 12:43 | PROVIDERS: ATTEND Nurse Practitioner | DX: Z53.9 Procedure and treatment not carried out, unspecified reason (principal) ==

== ENCOUNTER 2023-02-05 13:52 | Outpatient (CLI) | payer MEDICAID ==
--- NOTE | 2023-02-05 14:51 | XRAY Report ---
PROCEDURE: Cervical Spine 2 View INDICATIONS: NECK PX,CHRONIC TECHNIQUE: 3 view(s) of the cervical spine were acquired. COMPARISON: MRI cervical spine 04/24/2020, x-ray cervical spine 03/04/2020 FINDINGS: Bones: No fractures or dislocations to the C7 level. The lateral masses of C1 appear intact on the odontoid view. No suspicious bony lesions. Again seen reversal of the normal cervical lordosis, lorena tered at C4-C5. Minimal anterolisthesis of C3-C4 and C4 on C5. Multilevel degenerative changes of the cervical spine with facet and uncovertebral arthropathy, disc height loss, endplate degenerative kenzie nges and spurring. This is most pronounced at C5-C6 and C6-C7. Soft tissues: No prevertebral soft tissue swelling. IMPRESSION: Multilevel degenerative changes of the cervical spine are mildly progressed compared to 03/04/2020 x-ray. Reviewed by: Juan M Pineda MD on 02/05/2023 2:50 PM PDT Approved by: Juan M Pineda MD on 02/05/2023 2:50 PM PDT Station ID: [id number]
== END 2023-02-05 13:53 | disposition home or self-care (01) ==
LOC: DI 13:52
PROVIDERS: ATTEND Nurse Practitioner
DX: M47.812 Spondylosis without myelopathy or radiculopathy, cervical region (principal)

== ENCOUNTER 2023-03-01 10:27 | Outpatient (CLI) | payer MEDICAID ==
--- NOTE | 2023-03-01 16:57 | MRI Report ---
PROCEDURE: CERVICAL SPINE WO INDICATIONS: DJD CERVICAL SPINE TECHNIQUE: Noncontrast sagittal T1 spin echo and T2 fast spin echo, sagittal STIR, foraminal oblique sagittal T2 fast spin echo, and axial gradient echo or T2 fast spin echo through the cervical spine. COMPARISON: None. FINDINGS: Image quality: Excellent. Alignment and Curvature: There is reversal cervical curvature with apex at C5-6. Bone Marrow: Marrow demonstrates normal overall signal. Spinal Cord: Visualized spinal cord has normal size and signal. No cerebellar tonsillar herniation. Paraspinous Soft Tissues: No paravertebral masses. Prevertebral soft tissues are normal in thicknes s. Discs: Minimal scattered disc desiccation is present C5-6. C2-C3: No disc bulge, spinal stenosis or foraminal narrowing. C3-C4: Minimal disc bulge without spinal stenosis. No foraminal narrowing. C4-C5: Minimal disc bulge without spinal stenosis or foraminal narrowing. C5-C6: Mild disc bulge with superimposed posterior central protrusion. There is indentation anterior thecal sac as well as cord. Minimal bilateral foraminal narrowing. C6-C7: Mild disc bulge with superimposed posterior central protrusion. There is minimal indentation of the anterior thecal sac and cord. Minimal bilateral foraminal narrowing. C7-T1: No disc bulge, spinal stenosis or foraminal narrowing. IMPRESSION: Early degenerative changes most notable with disc bulges at C5-6 and C6-7. Reviewed by: Monica Sow MD on 03/01/2023 4:55 PM PDT Approved by: Monica Sow MD on 03/01/2023 4:55 PM PDT Station ID: [id number]
== END 2023-03-01 10:28 | disposition home or self-care (01) ==
LOC: DI 10:27
PROVIDERS: ATTEND Nurse Practitioner
DX: M50.31 Other cervical disc degeneration, high cervical region (principal); M47.812 Spondylosis without myelopathy or radiculopathy, cervical region

== ENCOUNTER 2023-05-17 16:00 | Outpatient (CLI) | payer MEDICAID ==
[2023-05-18 20:48] LABS: CHLAMYDIA TRACHOMATIS DNA NEGATIVE (NEGATIVE); NEISSERIA GONORRHOEAE DNA NEGATIVE (NEGATIVE); TRICHOMONAS VAGINALIS DNA NEGATIVE (NEGATIVE)
== END 2023-05-17 23:59 | disposition home or self-care (01) ==
LOC: LAB.WC 16:00
PROVIDERS: ATTEND Nurse Practitioner
DX: Z11.3 Encounter for screening for infections with a predominantly sexual mode of transmission (principal)
CPT/HCPCS: 87491; 87591; 87661

== ENCOUNTER 2023-05-26 08:00 | Outpatient (CLI) | payer MEDICAID ==
[2023-05-26 20:11] LABS: CHLAMYDIA TRACHOMATIS DNA NEGATIVE (NEGATIVE); NEISSERIA GONORRHOEAE DNA NEGATIVE (NEGATIVE); TRICHOMONAS VAGINALIS DNA NEGATIVE (NEGATIVE)
== END 2023-05-26 23:59 | disposition home or self-care (01) ==
LOC: LAB.WC 08:00
PROVIDERS: ATTEND Obstetrics & Gynecology
DX: Z11.3 Encounter for screening for infections with a predominantly sexual mode of transmission (principal)
CPT/HCPCS: 87491; 87591; 87661

== ENCOUNTER 2023-05-31 08:00 | Outpatient (CLI) | payer MEDICAID ==
[2023-06-01 11:52] LABS: BILIRUBIN,URINE NEGATIVE (NEGATIVE); GLUCOSE, URINE (UA) NEGATIVE (NEGATIVE); KETONES,URINE (UA) NEGATIVE (NEGATIVE); LEUKOCYTE ESTERASE, URINE MODERATE (NEGATIVE); NITRITE,URINE NEGATIVE (NEGATIVE); OCCULT BLOOD,URINE SMALL (NEGATIVE); PROTEIN,URINE NEGATIVE (NEGATIVE); UROBILINOGEN,URINE 0.2 (NORMAL) E.U./dL (NORMAL)
[2023-06-01 12:24] LABS: CLARITY,URINE CLOUDY (CLEAR)
[2023-06-01 12:25] LABS: BACTERIA,URINE Moderate /HPF (None Seen); CRYSTALS,URINE 0-2 Calcium Oxalate /LPF; MUCUS,URINE Few Strands; SQUAMOUS EPITHELIAL CELL,UR RARE Squamous (<= Few)
[2023-06-01 21:29] LABS: CHLAMYDIA TRACHOMATIS DNA NEGATIVE (NEGATIVE); NEISSERIA GONORRHOEAE DNA NEGATIVE (NEGATIVE); TRICHOMONAS VAGINALIS DNA NEGATIVE (NEGATIVE)
== END 2023-05-31 23:59 | disposition home or self-care (01) ==
LOC: LAB.WC 08:00
PROVIDERS: ATTEND Nurse Practitioner
DX: R30.0 Dysuria (principal); Z11.3 Encounter for screening for infections with a predominantly sexual mode of transmission
CPT/HCPCS: 81001; 87086; 87491; 87591; 87661

== ENCOUNTER 2023-08-07 08:00 | Outpatient (CLI) | payer MEDICAID ==
[2023-08-07 23:32] LABS: CHLAMYDIA TRACHOMATIS DNA NEGATIVE (NEGATIVE); NEISSERIA GONORRHOEAE DNA NEGATIVE (NEGATIVE); TRICHOMONAS VAGINALIS DNA NEGATIVE (NEGATIVE)
== END 2023-08-07 23:59 | disposition home or self-care (01) ==
LOC: LAB.N 08:00
PROVIDERS: ATTEND Physician Assistant
DX: R30.0 Dysuria (principal)
CPT/HCPCS: 87491; 87591; 87661

== ENCOUNTER 2023-09-21 15:45 | Outpatient (CLI) | payer MEDICAID ==
[2023-09-21 22:43] LABS: CHLAMYDIA TRACHOMATIS DNA NEGATIVE (NEGATIVE); NEISSERIA GONORRHOEAE DNA NEGATIVE (NEGATIVE); TRICHOMONAS VAGINALIS DNA NEGATIVE (NEGATIVE)
== END 2023-09-21 16:00 | disposition home or self-care (01) ==
LOC: LAB.N 15:45
PROVIDERS: ATTEND Physician Assistant Medical
DX: N39.0 Urinary tract infection, site not specified (principal); Z11.3 Encounter for screening for infections with a predominantly sexual mode of transmission
CPT/HCPCS: 87086; 87491; 87591; 87661

== ENCOUNTER 2023-12-01 08:00 | Outpatient (CLI) | payer MEDICAID ==
[2023-12-02 16:01] LABS: CHLAMYDIA TRACHOMATIS DNA NEGATIVE (NEGATIVE); NEISSERIA GONORRHOEAE DNA NEGATIVE (NEGATIVE)
[2023-12-02 20:09] LABS: BACTERIAL VAGINOSIS DNA NEGATIVE (NEGATIVE); CANDIDA KRUSEI DNA NEGATIVE (NEGATIVE); TRICHOMONAS VAGINALIS DNA NEGATIVE (NEGATIVE)
[2023-12-02 20:10] LABS: CANDIDA GLABRATA DNA NEGATIVE (NEGATIVE); CANDIDA GROUP DNA POSITIVE (NEGATIVE)
== END 2023-12-01 23:59 | disposition home or self-care (01) ==
LOC: LAB.WC 08:00
PROVIDERS: ATTEND Obstetrics & Gynecology
DX: L29.8 Other pruritus (principal); Z11.3 Encounter for screening for infections with a predominantly sexual mode of transmission
CPT/HCPCS: 81514; 87491; 87591; 87661; 87801

== ENCOUNTER 2024-03-16 15:43 | Outpatient (CLI) | payer MEDICAID ==
[2024-03-16 22:44] LABS: CHLAMYDIA TRACHOMATIS DNA NEGATIVE (NEGATIVE); NEISSERIA GONORRHOEAE DNA NEGATIVE (NEGATIVE)
[2024-03-17 00:46] LABS: BACTERIAL VAGINOSIS DNA NEGATIVE (NEGATIVE); CANDIDA GLABRATA DNA NEGATIVE (NEGATIVE); CANDIDA GROUP DNA NEGATIVE (NEGATIVE); CANDIDA KRUSEI DNA NEGATIVE (NEGATIVE); TRICHOMONAS VAGINALIS DNA NEGATIVE (NEGATIVE)
== END 2024-03-16 15:44 | disposition home or self-care (01) ==
LOC: LAB.WC 15:43
PROVIDERS: ATTEND Nurse Practitioner
DX: Z11.3 Encounter for screening for infections with a predominantly sexual mode of transmission (principal)
CPT/HCPCS: 81514; 87491; 87591; 87661